=== PATIENT | male | born 1940 | race Caucasian/White ===

== ENCOUNTER 2018-08-15 08:51 | Day surgery (SDC) | payer OTHER, MEDICARE ==
--- OUTSIDE RECORDS SUMMARY | 2018-08-15 08:54 | XMS REPORT | Clinical Summary ---
:1940 Author Organization [facility] Address [address] [place] [address] Care Team Providers Name Role Phone Asked, No Pcp Primary Care Provider Unavailable Allergies No Known Allergies Current Medications Prescription Sig. Disp. Refills Start Date End Date Status atenolol (TENORMIN) 100 08/11/2016 Active MG tablet simvastatin (ZOCOR) 40 08/11/2016 Active MG tablet omeprazole (PriLOSEC) 08/11/2016 Active 40 MG capsule torsemide (DEMADEX) 20 Take 20 mg by Active MG tablet mouth daily. telmisartan (MICARDIS) Take 80 mg by Active 80 MG tablet mouth daily. alendronate (FOSAMAX) Take 70 mg by Active 70 MG tablet mouth every 7 days. Take in the morning with a full glass of water, on an empty stomach, and do not take anything else by mouth or lie down for the next 30 min. aspirin (ECOTRIN) 81 MG Take 81 mg by Active enteric coated tablet mouth daily. multivitamin Take 1 tablet by Active (THERAGRAN) tablet mouth daily. potassium chloride Take 20 mEq by Active (KLOR-CON) 20 mEq mouth 2 (two) packet times a day. cinnamon bark Take 500 mg by Active (CINNAMON) 500 mg mouth daily. capsule cyanocobalamin 100 MCG Take 100 mcg by Active tablet mouth daily. calcium citrate-vitamin Take 1 tablet by Active D3 (CITRACAL+D) 315-200 mouth 2 (two) mg-unit per tablet times a day. cyanocobalamin, vitamin Take by mouth. Active B-12, (LIQUID B 12) 1,000 mcg/15 mL liquid finasteride (PROSCAR) 5 Take 1 tablet by 90 tablet 1 07/16/2017 Active mg tablet mouth daily Active Problems Not on file Social History Tobacco Use Types Packs/Day Years Used Date Never Smoker Smokeless Tobacco: Never Used Alcohol Use Drinks/Week oz/Week Comments Yes Sex Assigned at Date Recorded Not on file Last Filed Vital Signs Not on file Plan of Treatment Health Maintenance Due Date Last Done Comments SHINGRIX VACCINE (#1) 1988 ZOSTER VACCINE 1998 PNEUMOCOCCAL POLYSACCHARIDE VACCINE AGE 65 AND OVER 2003 PNEUMOCOCCAL-13 2003 INFLUENZA VACCINE 06/20/2018 Results Not on fileafter 08/14/2017 Insurance Payer Benefit Plan / Group Subscriber ID Type Phone Address AARP AARP SUPPLEMENT xxxxxxxxxxx Commercial MEDICARE MEDICARE PART A AND B xxxxxxxxxx Medicare [place], [place] Home: [address] [phone] [address]
--- OUTSIDE RECORDS SUMMARY | 2018-08-15 08:54 | XMS REPORT ---
:1940 Author Organization [employer] Care Team Providers Name Role Phone Barrington Early Provider Role Unavailable Allergies No Known Allergies Problems No Known Problems Medications No Known Medications Results No Known Results Summary Purpose eClinicalWorks Submission
--- OUTSIDE RECORDS SUMMARY | 2018-08-15 08:54 | XMS REPORT ---
:1940 Author Organization [employer] Care Team Providers Name Role Phone Barrington Early Provider Role Unavailable Allergies, Adverse Reactions, Alerts Substance Reaction Event Type N.K.D.A. Info Not Available Non Drug Allergy Problems Problem Type Condition Code Onset Dates Condition Status Assessment Trigger ring finger of right hand M65.341 Active Assessment Trigger middle finger of left hand M65.332 Active Assessment Right hand pain M79.641 Active Assessment Left hand pain M79.642 Active Medications Medication Code Code Instructions Start End Status Dosage System Date Date Alendronate [facility] 39367461472 70 MG Oral Active not Sodium defined Atenolol [facility] 74284872830 100 MG Oral Active not defined Finasteride [facility] 89320888747 5 MG Oral Active not defined Trazodone HCl [facility] 81823251633 50 MG Orally Sept 10, Active 1 tablet Once a day 2018 at bedtime as needed Telmisartan [facility] 16579194110 80 MG Oral Active not defined Simvastatin [facility] 82072963683 40 MG Oral Active not defined Omeprazole [facility] 39040579636 40 MG Oral Active not defined Aspirin Adult [facility] 67150867481 81 MG Orally Sept 10, Active 1 tablet Low Dose Once a day 2018 Results No Known Results Summary Purpose eClinicalWorks Submission
--- OUTSIDE RECORDS SUMMARY | 2018-08-15 08:54 | XMS REPORT ---
:1940 Author Organization [employer] Care Team Providers Name Role Phone Early Barrington Provider Role Unavailable Allergies No Known Allergies Problems No Known Problems Medications Medication Code Code Instructions Start End Date Status Dosage System Date Tylenol with [facility] 37333383346 300-30 MG Orally Aug 09, Active 1 tablet Codeine #3 every 6 hrs 2018 as needed Results No Known Results Summary Purpose eClinicalWorks Submission
[2018-08-15 09:37] LABS: Protime INR 0.99
[2018-08-15] MEDS ORDERED: CEFAZOLIN/SWI 1gm 1 GM/10 ML SYR ONE (09:58)
[2018-08-15] MEDS: Ringers Lactate 1,000 ML IV ONE ×2 (10:09→11:14)
[2018-08-15] MEDS ORDERED: BUPIVACAINE 0.25% PF 10 ML VIAL ONE (10:26)
[2018-08-15] MEDS ORDERED: PROPOFOL 200 MG/20 ML VIAL IV ONE (10:31)
[2018-08-15] MEDS ORDERED: FENTANYL CITR 100 MCG/2 ML ONE (10:31)
[2018-08-15] MEDS ORDERED: LIDOCAINE 2% MPF 5 ML VIAL ONE (10:31)
[2018-08-15] MEDS ORDERED: ONDANSETRON HCL 40 MG/20 ML VIAL ONE (10:54)
[2018-08-15] MEDS ORDERED: GLYCOPYRROLATE 0.2 MG/ML SYR ONE ×2 (11:34→11:38)
--- NOTE | 2018-08-15 12:02 | P.BOP ---
Preoperative diagnosis: left hand middle finger trigger digit Postoperative diagnosis: same Primary procedure: left hand middle finger A1 dk release Other procedure(s): none Welder Tech: NONE,NONE Estimated blood loss: <5 cc Specimen: none Findings: see dictation Anesthesia: General Complications: None Implants: none Fluids & blood products: per anesthesia; TT: 19 mins @ 300 mmHg Transferred to: Recovery Room Condition: Good
--- NOTE | 2018-08-16 03:45 | OP ---
Date of Procedure: 08/15/2018 Surgeon: Barrington Early MD Preoperative Diagnosis: Left hand middle finger trigger digit. Postoperative Diagnosis: Left hand middle finger trigger digit. Procedure Performed: Left hand middle finger A1 dk release. Anesthesia: General LMA. Fluids: Per Anesthesia record. Estimated Blood Loss: 2 cc. Complications: None. Implants: None. Specimens: None. Indication For Procedure: Fidel is a 77-year-old male, who presented to my clinic with signs and symptoms consistent with left hand long finger trigger digit. He failed conservative treatment including steroid injection. He had continued pain and triggering of the left hand middle finger. Discussed with the patient at length risks and benefits associated with operative and nonoperative treatment. He expressed understanding and elected to proceed with operative treatment. Description Of Procedure: After informed consent was obtained, the patient was identified in the preoperative holding area. The left hand middle finger was marked. The patient was then taken back to the operating room, transferred to the operating table in supine fashion and placed under general LMA anesthesia. The left upper extremity was then prepped and draped in the usual sterile fashion. A time-out was initiated. The correct patient and procedure were confirmed and identified. The patient did receive preoperative prophylactic antibiotics. The left upper extremity was then exsanguinated and tourniquet was inflated to 250 mmHg. Approximately 1.5 cm longitudinal incision was made over the left hand middle finger A1 dk. Dissection was then taken down to the flexor tendon sheath. It was exposed. It was split and divided. A small portion of the flexor tendon sheath was excised. There was synovial fluid that was expressed after opening of the flexor tendon sheath. Using a Ragnell retractor, the flexor tendon was brought out through the skin incision and the patient had full excursion of the flexor tendon with full range of motion of the middle finger without triggering. The wound was then irrigated thoroughly with normal saline. Skin was approximated using a 5-0 Prolene. Sterile dressings were applied. Tourniquet was let down. The patient was awaken and transferred to PACU in stable condition. Postoperative Plan: He will be nonweightbearing of his left upper extremity. He may be worked on range of motion exercises. He will follow up next week in my clinic for suture removal. DONNY/ANASTASIIA Voice ID: [id number] Report ID: [id number] MTDD
== END 2018-08-15 14:06 | disposition home or self-care (01) ==
LOC: OR 08:51
PROVIDERS: ATTEND Orthopaedic Surgery Sports Medicine
PROC: 0LN80ZZ Release Left Hand Tendon, Open Approach (ICD-10-PCS; principal; 2018-08-15 10:30)
DX: M65.332 Trigger finger, left middle finger (principal); I10 Essential (primary) hypertension; K21.9 Gastro-esophageal reflux disease without esophagitis; G47.33 Obstructive sleep apnea (adult) (pediatric); E78.00 Pure hypercholesterolemia, unspecified; Z85.828 Personal history of other malignant neoplasm of skin; Z79.82 Long term (current) use of aspirin; Z83.3 Family history of diabetes mellitus
CPT/HCPCS: 26055; 36415 ×2; 85610; 85730; J0690; J2405; J3010

== ENCOUNTER 2018-11-16 08:43 | Day surgery (SDC) | payer OTHER, MEDICARE ==
[2018-11-08 11:16] LABS: Protime INR 0.95
[2018-11-08 11:24] LABS: Potassium 3.9 mmol/L (3.5-5.1)
[2018-11-08 11:25] LABS: Absolute Lymphocytes (CBC) 2.6 K/uL (0.7-4.9); Absolute Monocytes 0.4 K/uL (0.1-1.3); Absolute Neutrophil 2.3 K/uL (1.8-8.0); Basophils % 0.9 % (0-1.3); Eosinophils % 3.7 % (0-4.4); Lymphocytes % 45.9 % (15.3-44.8); Monocytes % 8.1 % (3.3-12.3); RBC Red Blood Cell Count 5.19 M/uL (4.33-5.43)
[2018-11-08 12:25] LABS: Blood Morphology Comment NOT SEEN (NOT SEEN); Platelet Estimate ADEQ
--- OUTSIDE RECORDS SUMMARY | 2018-11-16 08:46 | XMS REPORT | Clinical Summary ---
:1940 Author Organization [facility] Address [address] [place] [address] Care Team Providers Name Role Phone Asked, No Pcp Primary Care Provider Unavailable Allergies No Known Allergies Medications Medication Sig Dispensed Refills Start Date End Date Status atenolol (TENORMIN) 100 0 08/11/2016 Active MG tablet simvastatin (ZOCOR) 40 0 08/11/2016 Active MG tablet omeprazole (PriLOSEC) 0 08/11/2016 Active 40 MG capsule torsemide (DEMADEX) 20 Take 20 mg by 0 Active MG tablet mouth daily. telmisartan (MICARDIS) Take 80 mg by 0 Active 80 MG tablet mouth daily. alendronate (FOSAMAX) Take 70 mg by 0 Active 70 MG tablet mouth every 7 days. Take in the morning with a full glass of water, on an empty stomach, and do not take anything else by mouth or lie down for the next 30 min. aspirin (ECOTRIN) 81 MG Take 81 mg by 0 Active enteric coated tablet mouth daily. multivitamin Take 1 tablet by 0 Active (THERAGRAN) tablet mouth daily. potassium chloride Take 20 mEq by 0 Active (KLOR-CON) 20 mEq mouth 2 (two) packet times a day. cinnamon bark Take 500 mg by 0 Active (CINNAMON) 500 mg mouth daily. capsule cyanocobalamin 100 MCG Take 100 mcg by 0 Active tablet mouth daily. calcium citrate-vitamin Take 1 tablet by 0 Active D3 (CITRACAL+D) 315-200 mouth 2 (two) mg-unit per tablet times a day. cyanocobalamin, vitamin Take by mouth. 0 Active B-12, (LIQUID B 12) 1,000 mcg/15 mL liquid finasteride (PROSCAR) 5 Take 1 tablet by 90 tablet 1 07/16/2017 Active mg tablet mouth daily Active Problems Not on file Social History Tobacco Use Types Packs/Day Years Used Date Never Smoker Smokeless Tobacco: Never Used Alcohol Use Drinks/Week oz/Week Comments Yes Sex Assigned at Date Recorded Not on file Job Start Date Occupation Industry Not on file Not on file Not on file Travel History Travel Start Travel End No recent travel history available. Last Filed Vital Signs Not on file Plan of Treatment Health Maintenance Due Date Last Done Comments SHINGLES VACCINES (1 of 2) 1988 PNEUMOCOCCAL POLYSACCHARIDE VACCINE AGE 65 AND OVER 2003 PNEUMOCOCCAL-13 2003 INFLUENZA VACCINE 06/20/2018 Results Not on fileafter 11/15/2017 Insurance Payer Benefit Plan / Group Subscriber ID Type Phone Address AARP AARP SUPPLEMENT xxxxxxxxxxx Commercial MEDICARE MEDICARE PART A AND B xxxxxxxxxx Medicare [place], [place] Advance Directives Patient has advance care planning documents on file. For more information, please contact:[place] [address]
--- OUTSIDE RECORDS SUMMARY | 2018-11-16 08:46 | XMS REPORT ---
[...] End Status Dosage System Date Date Alendronate [facility] 71841922184 70 MG Oral Active not Sodium defined Atenolol [facility] 28908915778 100 MG Oral Active not defined Finasteride [facility] 92096598617 5 MG Oral Active not defined Trazodone HCl [facility] 53801080458 50 MG Orally Sept 10, Active 1 tablet Once a day 2018 at bedtime as needed Telmisartan [facility] 90066099637 80 MG Oral Active not defined Simvastatin [facility] 27136426785 40 MG Oral Active not defined Omeprazole [facility] 03200860468 40 MG Oral Active not defined Aspirin Adult [facility] 72049135975 81 MG Orally Sept 10, Active 1 tablet Low Dose Once a day 2018 Results No Known Results Summary Purpose eClinicalWorks Submission
--- OUTSIDE RECORDS SUMMARY | 2018-11-16 08:46 | XMS REPORT ---
:1940 Author Organization [employer] Care Team Providers Name Role Phone Early Barrington Provider Role Unavailable Allergies, Adverse Reactions, Alerts Substance Reaction Event Type N.K.D.A. Info Not Available Non Drug Allergy Problems Problem Type Condition Code Onset Dates Condition Status Assessment Trigger finger, left middle finger M65.332 Active Medications Medication Code Code Instructions Start End Status Dosage System Date Date Finasteride [facility] 48508181147 5 MG Oral Active not defined Telmisartan [facility] 02623853705 80 MG Oral Active not defined Trazodone HCl [facility] 54724533883 50 MG Orally Jul 30, Active 1 tablet Once a day 2017 at bedtime as needed Aspirin Adult [facility] 04672504249 81 MG Orally Jul 30, Active 1 tablet Low Dose Once a day 2017 Omeprazole [facility] 06227076390 40 MG Oral Active not defined Atenolol [facility] 85287215177 100 MG Oral Active not defined Simvastatin [facility] 93455949112 40 MG Oral Active not defined Alendronate [facility] 59331528657 70 MG Oral Active not Sodium defined Results No Known Results Summary Purpose eClinicalWorks Submission
--- OUTSIDE RECORDS SUMMARY | 2018-11-16 08:46 | XMS REPORT ---
:1940 Author Organization [employer]ClinicalWorks Care Team Providers Name Role Phone Early Barrington Provider Role Unavailable Allergies No Known Allergies Problems No Known Problems Medications Medication Code Code Instructions Start End Date Status Dosage System Date Tylenol with [facility] 23718593291 300-30 MG Orally Aug 09, Active 1 tablet Codeine #3 every 6 hrs 2018 as needed Results No Known Results Summary Purpose eClinicalWorks Submission
[2018-11-16] MEDS ORDERED: Ringers Lactate 1,000 ML IV ONE (08:57)
[2018-11-16] MEDS ORDERED: CEFAZOLIN 1GM (PREMIX IV) 1 GM/50 ML BAG ONE (08:58)
[2018-11-16] MEDS ORDERED: FENTANYL CITR 100 MCG/2 ML ONE (09:54)
[2018-11-16] MEDS ORDERED: PROPOFOL 200 MG/20 ML VIAL IV ONE (09:54)
[2018-11-16] MEDS ORDERED: MIDAZOLAM HCL 2 MG/2 ML INJ ONE (09:54)
[2018-11-16] MEDS ORDERED: LIDOCAINE 1% MPF 5 ML VIAL ONE (09:54)
[2018-11-16] MEDS ORDERED: BUPIVACAINE 0.25% PF 30 ML VIAL ONE (10:08)
[2018-11-16] MEDS ORDERED: KETOROLAC 30 MG/ML INJ ONE (10:51)
--- NOTE | 2018-11-16 10:53 | P.BOP ---
Preoperative diagnosis: right hand ring finger trigger digit Postoperative diagnosis: same Primary procedure: right hand ring finger A1 dk release Business Development Coordinator: NONE,NONE Estimated blood loss: 2 cc Specimen: none Findings: see dictation Anesthesia: General Complications: None Implants: none Fluids & blood products: per anesthesia; TT: 18 mins @ 250 mmHg Transferred to: Recovery Room Condition: Good
[2018-11-16] MEDS ORDERED: ONDANSETRON 4 MG/2 ML VIAL ONE (10:54)
--- NOTE | 2018-11-16 23:59 | OP ---
Date of Procedure: 11/16/2018 Surgeon: Barrington Early MD Preoperative Diagnosis: Right hand ring finger trigger digit. Postoperative Diagnosis: Right hand ring finger trigger digit. Procedure Performed: Right hand ring finger A1 dk release. Anesthesia: General LMA. Fluids: Per Anesthesia record. Estimated Blood Loss: 2 cc. Tourniquet Time: 18 minutes at 250 mmHg. Implants: None. Complications: None. Indication For Procedure: Fidel is a 77-year-old male, presented to my clinic with signs and symptoms and physical exam findings consistent with a right hand ring finger trigger digit. The patient fail ed conservative treatment measures and discussed with the patient at length risks and benefits associ ated with operative treatment. He expressed understanding and elected to proceed with operative wallace tment. Description Of Procedure: After informed consent was obtained, the patient was identified in the pre operative holding area. The right hand ring finger was marked. The patient was then taken back to t operating room, transferred to the operative table in supine fashion, placed under general LMA ane sthesia. Right upper extremity was then prepped and draped in usual sterile fashion. A time-out was initiated. The correct patient and procedure were confirmed and identified. The patient did receiv e his preoperative prophylactic antibiotic. Right upper extremity was then exsanguinated. Tournique t was inflated to 250 mmHg and approximately a 1.5 cm incision was made centered over the ring finger A1 dk. Dissection was then taken down to the A1 dk using tenotomies as well as Ragnell retr actors. Once the flexor tendon sheath was identified, a 15 blade was then used in split and divide t he A1 dk, it was further divided using tenotomies both proximally and distally. A Ragnell was th en used to bring out the flexor tendons out through the incision. There was full excursion of the te ndons without any triggering. There were some synovial fluid that was expressed after the flexor ten don sheath was incised, consistent with chronic synovitis. The wound was then irrigated thoroughly w ith normal saline and the skin was approximated using a 5-0 Prolene. Sterile dressings were placed. The patient awakened and transferred back in stable condition. Postoperative Plan: The patient will follow up in my clinic next week for wound check. He will begi n with range of motion exercises of the right hand. CV/MODL Voice ID: [id number] Report ID: [id number]
== END 2018-11-16 12:50 | disposition home or self-care (01) ==
LOC: OR 08:43
PROVIDERS: ATTEND Orthopaedic Surgery Sports Medicine
PROC: 0LN70ZZ Release Right Hand Tendon, Open Approach (ICD-10-PCS; principal; 2018-11-16 10:00)
DX: M65.341 Trigger finger, right ring finger (principal); I10 Essential (primary) hypertension; E78.00 Pure hypercholesterolemia, unspecified; K21.9 Gastro-esophageal reflux disease without esophagitis; Z79.82 Long term (current) use of aspirin; Z79.899 Other long term (current) drug therapy
CPT/HCPCS: 26055; 36415; 80048; 85025; 85610; 85730; J0690; J2250; J2405; J2704; J3010

== ENCOUNTER 2022-05-02 07:34 | Day surgery (SDC) | payer OTHER, MEDICARE ==
--- NOTE | 2022-04-29 09:36 | RAD REPORT ---
EXAM DESCRIPTION: Chante Angelo (2 Views)04/29/2022 9:29 am CLINICAL HISTORY: Preop for hernia surgery COMPARISON: 2019 FINDINGS: The lungs appear clear of acute infiltrate. The heart is mildly enlarged IMPRESSION: No acute abnormalities displayed
--- NOTE | 2022-04-29 10:58 | EKG ---
Test Date: 2022-04-29 Test Time: 09:18:53 Roll Scale Worker: ANG MEASUREMENT RESULTS: Intervals: Rate: 58 MA: 218 QRSD: 88 QT: 416 QTc: 408 [place]: P: 77 MA: 218 QRS: -23 T: 2 INTERPRETIVE STATEMENTS: Sinus bradycardia with 1st degree AV block Low voltage QRS Inferior infarct, age undetermined Abnormal ECG Compared to ECG 11/13/2014 08:50:41 First degree AV block now present Low QRS voltage now present Myocardial infarct finding still present Electronically Signed On 04-29-22 10:57:56 CDT by Eulalio Canada
[2022-05-02] MEDS ORDERED: CEFAZOLIN SODIUM 1 GM/VIAL ONE (07:56)
[2022-05-02] MEDS ORDERED: Ringers Lactate 1,000 ML IV ONE (07:56)
[2022-05-02] MEDS ORDERED: FENTANYL CITR 100 MCG/2 ML ONE (08:09)
[2022-05-02] MEDS ORDERED: ROCURONIUM 50 MG/5 ML VIAL IV ONE (08:10)
[2022-05-02] MEDS ORDERED: propofoL 200 MG/20 ML VIAL IV ONE (08:10)
[2022-05-02] MEDS ORDERED: LIDOCAINE 1% MPF 5 ML VIAL ONE (08:10)
[2022-05-02] MEDS ORDERED: MIDAZOLAM HCL 2 MG/2 ML INJ ONE (08:10)
[2022-05-02] MEDS ORDERED: NS 0.9% VIAL 10 ML ONE (09:32)
[2022-05-02] MEDS ORDERED: dexAMETHasone 10 MG/ML VIAL ONE (09:43)
[2022-05-02] MEDS ORDERED: KETOROLAC 30 MG/ML INJ ONE (09:43)
[2022-05-02] MEDS ORDERED: ONDANSETRON 4 MG/2 ML VIAL ONE (09:44)
[2022-05-02] MEDS ORDERED: GLYCOPYRROLATE 0.2 MG/ML SYR ONE ×2 (09:47→10:13)
[2022-05-02] MEDS ORDERED: EPHEDRINE SULF 50 MG/ML VIAL ONE (09:52)
[2022-05-02] MEDS ORDERED: NEOSTIGMINE 1 MG/ML -10 ML VIAL ONE (10:13)
[2022-05-02] MEDS ORDERED: Mastisol Adhesive Liq ONE (10:19)
--- NOTE | 2022-05-02 10:24 | P.OP ---
Date of Service: 05/02/22 Preop diagnosis: Umbilical hernia Postop diagnosis: Same Procedure performed: Laparoscopic assisted repair of umbilical hernia Surgeon: Sushil Puga MD Clearing Inspector: Leena SORENSON Estimated blood loss: Minimal Specimen: Hernia sac and contents Findings: As above Anesthesia: General Complications: None Drains: None Fluids and blood products: Nonapplicable Disposition: Recovery room Operative note: Patient brought to the OR and placed in the supine position. General anesthesia begun. Patient prepped and draped in the usual sterile fashion. Marcaine 0.5% infiltrated locally. 15 blade used to make a 1 cm left upper quadrant incision. Subcutaneous tissue divided and fascia identified and divided. #1 Vicryl stay suture placed. Peritoneal cavity entered with sharp and blunt dissection. 12 mm trocar placed into the peritoneal cavity under direct vision. Pneumoperitoneum established. Laparoscopy revealed a small umbilical hernia with preperitoneal fat. A 3 cm transverse incision made over the umbilicus. Subcutaneous tissue divided. Hernia sac and contents identified and excised and sent to pathology as specimen. A 1.5 cm defect remained. Ventralex mesh, medium in size, placed into the peritoneal cavity. And then the fascia reapproximated using #1 Vicryl to secure the mesh to the surface of the f ascia. Then a 5 Ayala trocar placed in the left lower quadrant and laparoscopy was reestablished. Laparoscopy revealed complete coverage of the hernia defect. Tacker used to tack the mesh to the peritoneal service. Complete coverage of the hernia defect was accomplished with good borders. No evidence of bleeding or bowel injury was appreciated. All trochars were removed under direct vision. Stay sutures were tied to each other to reapproximate the fascial defect. Subcutaneous wounds were irrigated and bleeding controlled with cautery. 3-0 chromic was used to approximate subcutaneous tissue and close skin. Sterile dressing applied and patient awakened. Patient taken recovery room in good general condition. CC: Dr. De León's office
[2022-05-02] MEDS ORDERED: HYDROCODONE/APAP 7.5/325 MG TAB PO PRN (10:26)
[2022-05-02 11:18] VITALS: BP 143/71; TEMP 96.9; O2SAT 98
== END 2022-05-02 11:39 | disposition home or self-care (01) ==
LOC: OR 07:34
PROVIDERS: ATTEND Surgery
PROC: 0WUF4JZ Supplement Abdominal Wall with Synthetic Substitute, Percutaneous Endoscopic Approach (ICD-10-PCS; principal; 2022-05-02 09:15)
DX: K42.9 Umbilical hernia without obstruction or gangrene (principal); Z20.822 Contact with and (suspected) exposure to COVID-19
CPT/HCPCS: 93005; 88302; 71046; 49652; U0003; J2704; J2710; J3010; J1100; J7120; J2405; J0690; J2250

== ENCOUNTER 2023-10-23 03:35 | Inpatient (IN) | payer OTHER, MEDICARE ==
--- OUTSIDE RECORDS SUMMARY | 2023-10-23 03:41 | XMS REPORT | Continuity of Care Document ---
:1940 Author Organization [facility] t Address [address] [facility] [address] [place] [address] Care Team Providers Name Role Phone Asked, No Pcp Primary Care Physician Unavailable JOANNA DURAN Attending Clinician Unavailable Ava ROSARIO, Margarita Attending Clinician Unavailable Carlos DELGADO, Delvis Medley Attending Clinician Joanna Duran MD Attending Clinician Erinn Núñez RN Attending Clinician Unavailable Provider , Not In System Attending Clinician Unavailable Penny Penaloza Attending Clinician Unavailable Doctor Unassigned, [employer] Attending Clinician Unavailable Sven Butler DO Attending Clinician Jake Khanna Attending Clinician Payers Payer Name Policy Type Policy Number Effective Date Expiration Date S tess MEDICARE PART A \T\ [id number] 2003 B 00:00:00 [facility] [id number] 2003 MEDICARE SUPPLEMENT 00:00:00 Problems Condition Condition Condition Status Onset Resolution Last Treating Co mments Source Name Details Category Date Date Treatment Clinician Date [id number] Primary Problem 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 itis of - [facility] right knee [facility] No known No known Disease Unive rs active active ity of problems problems [facility] Allergies, Adverse Reactions, Alerts Allergy Allergy Status Severity Reaction(s) Onset Inactive Treating Comm ents Source Name Type Date Date Clinician NO KNOWN Drug Active Univers ALLERGIE Class ity of S [facility] No Known No Known Active Memori a Medicati Medicati l on on Basilio Allergruba Allergruba s s Family History Family Member Diagnosis Comments Start Date Stop Date Source Natural mother Stroke [facility] Natural sister Heart attack [facility] Natural sister Liver disease [facility] Social History Social Habit Start Date Stop Date Quantity Comments Source Sexual orientation 2023-09-04 Heterosexual Meth odist 09:43:10 (finding) Hospital History of Tobacco [facility] - Use [facility] Tobacco use and 2023-10-05 2023-10-05 Smokeless tobacco Me thodist exposure 00:00:00 00:00:00 non-user Hospital Alcohol intake 2023-10-05 2023-10-05 Ex-drinker Caodaism 00:00:00 00:00:00 (finding) Hospital History of Social 2023-10-05 2023-10-[address] function 00:00:00 00:00:00 Hospital Exposure to 2023-04-08 2023-04-18 Not sure University of SARS-CoV-2 (event) 00:00:00 13:24:00 [facility] Sex Ass[birth year] At [birth year] M Caodaism 00:00:00 00:00:00 Hospital Smoking Status Start Date Stop Date Source Social [facility] Medications Ordered Filled Start Stop Current Ordering Indication Dosage Frequency Signature Comments Components Source Medication Medication Date Date Medication? Clinician (SIG) Name Name torsemide 2022-11 Yes 20mg QD Take 1 Method i (DEMADEX) 1-16 tablet (20 st 20 MG 14:10: mg total) Hospita tablet 11 by mouth l daily. telmisartan 2022-11 Yes 80mg QD Take 1 Meth hallie (MICARDIS) 1-16 tablet (80 st 80 MG 14:10: mg total) Hospita tablet 11 by mouth l daily. alendronate 2022-11 Yes 70mg Q1W Take 1 Meth hallie (FOSAMAX) 1-16 tablet (70 st 70 MG 14:10: mg total) Hospita tablet 11 by mouth l every 7 days. Take in the morning with a full glass of water, on an empty stomach, and do not take anything else by mouth or lie down for the next 30 min. aspirin 2022-11 Yes 81mg QD Take 1 Methodi (ECOTRIN) 1-16 tablet (81 st 81 MG 14:10: mg total) Hospita enteric 11 by mouth l coated daily. tablet multivitami 2022-11 Yes 1{tbl} QD Take 1 Me thodi n 1-[address] (THERAGRAN) 14:10: mouth Hospi ta tablet 11 daily. l potassium 2022-11 Yes 20meq Q.5D Take 20 Meth hallie chloride 1-[address] (KLOR-CON) 14:10: mouth 2 Hosp melisa 20 mEq 11 (two) l packet times a day. cinnamon 2022-11 Yes 500mg QD Take 500 Meth hallie bark 1-[address] (CINNAMON) 14:10: mouth Hospit a 500 mg 11 daily. l capsule cyanocobala 2022-11 Yes 100ug QD Take 1 Met hodi min 100 MCG 1-[address] tablet 14:10: (100 mcg Hospita 11 total) by l mouth daily. calcium 2022-11 Yes 1{tbl} Q.5D Take 1 Method i citrate-vit 1-[address] christian D3 14:10: mouth 2 Hospita (CITRACAL+D 11 (two) l ) 315-200 times a mg-unit per day. tablet cyanocobala 2022-11 Yes Take by Met hodi min, 1-[address] vitamin 14:10: Hospita B-12, 11 l (LIQUID B 12) 1,000 mcg/15 mL liquid tamsulosin 2022-11 Yes .4mg QD Take 1 Metho di (FLOMAX) 1-[address] 0.4 mg 14:10: (0.4 mg Hospita capsule 11 total) by l mouth daily with dinner. clopidogreL 2022-11 Yes 75mg QD Take 1 Meth hallie (PLAVIX) 75 1-16 tablet (75 st mg tablet 14:10: mg total) Hos delphine 11 by mouth l daily. ZINC ORAL 2022-11 Yes 50mg Take 50 mg Me thodi 1-[address] 14:10: Hospita 11 l gluc/chondr 2022-11 Yes Take by Met hodi -msm 1-[address] 7/C/galina/desmond 14:10: Hospit a carroll 11 l (GLUCOSAMIN E-CHONDR, BOSWELLIA, ORAL) famotidine 2022-11 Yes not Methodi (PEPCID) 10 1-[address] mg/mL 14:06: Hospita injection 45 l famotidine 2022-11 Yes 40mg QD Take 1 Metho di (PEPCID) 40 1-16 tablet (40 st MG tablet 14:06: mg total) Hos delphine 45 by mouth l daily. irbesartan Yes 150mg 1 tablet Me thodi (AVAPRO) 6-10 ([address] 150 MG 00:00: total). Hospita tablet 00 l Amikacin 2018-11 No 500 mg, Memori a 2-27 Route: IM, l 20:17: ONCE, Dosing Weight 93.182, kg, Start date: 11/15/19 14:17:00 [employer], Stop date: 11/15/19 14:17:00 [employer] Amikacin 2018-11 No 500 mg, Memori a 2- Route: IM, l 20:17: ONCE, Dosing Weight 93.182, kg, Start date: 11/15/19 14:17:00 [employer], Stop date: 11/15/19 14:17:00 [employer] Amikacin 2018-11 No 500 mg, Memori a 2-27 Route: IM, l 20:17: ONCE, Dosing Weight 93.182, kg, Start date: 11/15/19 14:17:00 [employer], Stop date: 11/15/19 14:17:00 [employer] Amikacin 2018-11 No 500 mg, Memori a 2-27 Route: IM, l 20:17: ONCE, Dosing Weight 93.182, kg, Start date: 11/15/19 14:17:00 [employer], Stop date: 11/15/19 14:17:00 [employer] Amikacin 2018-11 No 500 mg, Memori a 2-27 Route: IM, l 20:17: ONCE, Dosing Weight 93.182, kg, Start date: 11/15/19 14:17:00 [employer], Stop date: 11/15/19 14:17:00 [employer] Amikacin 2019- No 500 mg, Memori a 2-27 Route: IM, l 20:17: ONCE, Basilio Dosing Weight 93.182, kg, Start date: 11/15/19 14:17:00 [employer], Stop date: 11/15/19 14:17:00 [employer] Amikacin 2019- No 500 mg, Memori a 2-27 Route: IM, l 20:17: ONCE, Basilio Dosing Weight 93.182, kg, Start date: 11/15/19 14:17:00 [employer], Stop date: 11/15/19 14:17:00 [employer] Amikacin 2019- No 500 mg, Memori a 2-27 Route: IM, l 20:17: ONCE, [place] Dosing Weight 93.182, kg, Start date: 11/15/19 14:17:00 [employer], Stop date: 11/15/19 14:17:00 [employer] Amikacin 2019- No 500 mg, Memori a 2-27 Route: IM, l 20:17: ONCE, Basilio Dosing Weight 93.182, kg, Start date: 11/15/19 14:17:00 [employer], Stop date: 11/15/19 14:17:00 [employer] Ciprofloxac 2018- Yes 500 mg = 1 Memoria in 500 MG 1-15 tab, PO, l Oral Tablet 22:13: Q12H, Jocelyn nn [Cipro] 00 begin three days prior to procedure, X 5 day, # 10 tab, 1 Refill(s), Pharmacy: [facility] #[id number] Ciprofloxac 2018-11 Yes 500 mg = 1 Memoria in 500 MG 1-15 tab, PO, l Oral Tablet 22:13: Q12H, Jocelyn nn [Cipro] 00 begin three days prior to procedure, X 5 day, # 10 tab, 1 Refill(s), [id number] Ciprofloxac 2018-11 Yes 500 mg = 1 Memoria in 500 MG 1-15 tab, PO, l Oral Tablet 22:13: Q12H, Jocelyn nn [Cipro] 00 begin three days prior to procedure, X 5 day, # 10 tab, 1 Refill(s), Pharmacy: [facility] #[id number] [facility] 2018-11 Yes 500 mg = 1 Memoria in 500 MG 1-15 tab, PO, l Oral Tablet 22:13: Q12H, Jocelyn nn [Cipro] 00 begin three days prior to procedure, X 5 day, # 10 tab, 1 Refill(s), Pharmacy: [facility] #[id number] Yes 500 mg = 1 Memoria in 500 MG 1-15 tab, PO, l Oral Tablet 22:13: Q12H, Jocelyn nn [Cipro] 00 begin three days prior to procedure, X 5 day, # 10 tab, 1 Refill(s), Pharmacy: [facility] #[id number] [facility]11 Yes 500 mg = 1 Memoria in 500 MG 1-15 tab, PO, l Oral Tablet 22:13: Q12H, Jocelyn nn [Cipro] 00 begin three days prior to procedure, X 5 day, # 10 tab, 1 Refill(s), Pharmacy: [id number] [facility] 2018-11 Yes 500 mg = 1 Memoria in 500 MG 1-15 tab, PO, l Oral Tablet 22:13: Q12H, Jocelyn nn [Cipro] 00 begin three days prior to procedure, X 5 day, # 10 tab, 1 Refill(s), Pharmacy: [id number] 2018-11 Yes 500 mg = 1 Memoria in 500 MG 1-15 tab, PO, l Oral Tablet 22:13: Q12H, Jocelyn nn [Cipro] 00 begin three days prior to procedure, X 5 day, # 10 tab, 1 Refill(s), Pharmacy: [facility] #[id number] [facility]11 Yes 500 mg = 1 Memoria in 500 MG 1-15 tab, PO, l Oral Tablet 22:13: Q12H, Jocelyn nn [Cipro] 00 begin three days prior to procedure, X 5 day, # 10 tab, 1 Refill(s), Pharmacy: [facility] #[id number] finasteride 2018-11 Yes 5 mg = 1 Me moria 5 mg oral 1-15 tab, PO, l tablet 20:36: Daily, 0 Refill(s) finasteride 2018-11 Yes 5 mg = 1 Me moria 5 mg oral 1-15 tab, PO, l tablet 20:36: Daily, 0 Refill(s) finasteride 2018-11 Yes 5 mg = 1 Me moria 5 mg oral 1-15 tab, PO, l tablet 20:36: Daily, 0 Refill(s) finasteride 2018-11 Yes 5 mg = 1 Me moria 5 mg oral 1-15 tab, PO, l tablet 20:36: Daily, 0 Refill(s) finasteride 2018-11 Yes 5 mg = 1 Me moria 5 mg oral 1-15 tab, PO, l tablet 20:36: Daily, 0 Refill(s) finasteride 2018-11 Yes 5 mg = 1 Me moria 5 mg oral 1-15 tab, PO, l tablet 20:36: Daily, 0 Refill(s) finasteride 2018-11 Yes 5 mg = 1 Me moria 5 mg oral 1-15 tab, PO, l tablet 20:36: Daily, 0 Refill(s) finasteride 2018-11 Yes 5 mg = 1 Me moria 5 mg oral 1-15 tab, PO, l tablet 20:36: Daily, 0 Refill(s) finasteride 2018-11 Yes 5 mg = 1 Me moria 5 mg oral 1-15 tab, PO, l tablet 20:36: Daily, 0 Refill(s) Micardis 2018-11 Yes PO, Daily, Mem oria 0-24 0 l 15:15: Refill(s) Micardis 2018-11 Yes PO, Daily, Mem oria 0-24 0 l 15:15: Refill(s) Micardis 2018-11 Yes PO, Daily, Mem oria 0-24 0 l 15:15: Refill(s) Micardis 2018-11 Yes PO, Daily, Mem oria 0-24 0 l 15:15: Refill(s) Micardis 2018-11 Yes PO, Daily, Mem oria 0-24 0 l 15:15: Refill(s) Micardis 2018-11 Yes PO, Daily, Mem oria 0-24 0 l 15:15: Refill(s) Ransom 00 Micardis 2018-11 Yes PO, Daily, Mem oria 0-24 0 l 15:15: Refill(s) Micardis 2018-11 Yes PO, Daily, Mem oria 0-24 0 l 15:15: Refill(s) Micardis 2018-11 Yes PO, Daily, Mem oria 0-24 0 l 15:15: Refill(s) Sulfamethox 2018-11 Yes 1 tab, PO, Memoria azole 800 0-02 BID, X 7 l MG / 15:11: day, # 14 Ransom Trimethopri 00 tab, 0 m 160 MG Refill(s), Oral Tablet [facility]: [facility] #[id number] Sulfamethox 2018-11 Yes 1 tab, PO, Memoria azole 800 0-02 BID, X 7 l MG / 15:11: day, # 14 Basilio Trimethopri 00 tab, 0 m 160 MG Refill(s), Oral Tablet Pharmacy: [facility] #[id number] Sulfamethox 2018-11 Yes 1 tab, PO, Memoria azole 800 0-02 BID, X 7 l MG / 15:11: day, # 14 Basilio Trimethopri 00 tab, 0 m 160 MG Refill(s), Oral Tablet Pharmacy: [facility] #[id number] Sulfamethox 2018-11 Yes 1 tab, PO, Memoria azole 800 0-02 BID, X 7 l MG / 15:11: day, # 14 Basilio Trimethopri 00 tab, 0 m 160 MG Refill(s), Oral Tablet [facility]: [facility] #[id number] Sulfamethox 2018-11 Yes 1 tab, PO, Memoria azole 800 0-02 BID, X 7 l MG / 15:11: day, # 14 Basilio Trimethopri 00 tab, 0 m 160 MG Refill(s), Oral Tablet [facility]: [facility] #[id number] Sulfamethox 2018-11 Yes 1 tab, PO, Memoria azole 800 0-02 BID, X 7 l MG / 15:11: day, # 14 Basilio Trimethopri 00 tab, 0 m 160 MG Refill(s), Oral Tablet Pharmacy: [[facility] #[id number] Sulfamethox 2018-11 Yes 1 tab, PO, Memoria azole 800 0-02 BID, X 7 l MG / 15:11: day, # 14 Basilio Trimethopri 00 tab, 0 m 160 MG Refill(s), Oral Tablet Pharmacy: [[facility] #[id number] Sulfamethox 2018-11 Yes 1 tab, PO, Memoria azole 800 0-02 BID, X 7 l MG / 15:11: day, # 14 Basilio Trimethopri 00 tab, 0 m 160 MG Refill(s), Oral Tablet Pharmacy: [[facility] #[id number] Sulfamethox 2018-11 Yes 1 tab, PO, Memoria azole 800 0-02 BID, X 7 l MG / 15:11: day, # 14 Ransom Trimethopri 00 tab, 0 m 160 MG Refill(s), Oral Tablet Pharmacy: [[facility] #[id number] tamsulosin 2018-11 Yes TK ONE C Mem oria 0.4 mg oral 0-02 PO D 1/2 l capsule 13:20: HOUR AFTER Herm otis 00 EVENING MEAL tamsulosin 2018-11 Yes TK ONE C Mem oria 0.4 mg oral 0-02 PO D 1/2 l capsule 13:20: HOUR AFTER Herm otis 00 EVENING MEAL tamsulosin 2018-11 Yes TK ONE C Mem oria 0.4 mg oral 0-02 PO D 1/2 l capsule 13:20: HOUR AFTER Herm otis 00 EVENING MEAL tamsulosin 2018-11 Yes TK ONE C Mem oria 0.4 mg oral 0-02 PO D 1/2 l capsule 13:20: HOUR AFTER Herm otis 00 EVENING MEAL tamsulosin 2018-11 Yes TK ONE C Mem oria 0.4 mg oral 0-02 PO D 1/2 l capsule 13:20: HOUR AFTER Herm otis 00 EVENING MEAL tamsulosin 2018-11 Yes TK ONE C Mem oria 0.4 mg oral 0-02 PO D 1/2 l capsule 13:20: HOUR AFTER Herm otis 00 EVENING MEAL tamsulosin 2018-11 Yes TK ONE C Mem oria 0.4 mg oral 0-02 PO D 1/2 l capsule 13:20: HOUR AFTER Herm otis 00 EVENING MEAL tamsulosin 2018-11 Yes TK ONE C Mem oria 0.4 mg oral 0-02 PO D 1/2 l capsule 13:20: HOUR AFTER Herm otis 00 EVENING MEAL tamsulosin 2018-11 Yes TK ONE C Mem oria 0.4 mg oral 0-02 PO D 1/2 l capsule 13:20: HOUR AFTER Herm otis 00 EVENING MEAL omeprazole 2018-11 Yes 40 mg = 1 Me moria 40 mg oral 0-02 cap, PO, l delayed 13:19: Daily, # Santhosh n release 00 30 cap, 0 capsule Refill(s) simvastatin 2018-11 Yes 40 mg = 1 M emoria 40 mg oral 0-02 tab, PO, l tablet 13:19: Bedtime, # Jocelyn nn 00 90 tab, 1 Refill(s) Atenolol 2018-11 Yes 100 mg = 1 Mem oria 100 MG Oral 0-02 tab, PO, l Tablet 13:19: Daily, # Basilio 00 30 tab, 0 Refill(s) omeprazole 2018-11 Yes 40 mg = 1 Me moria 40 mg oral 0-02 cap, PO, l delayed 13:19: Daily, # Santhosh n release 00 30 cap, 0 capsule Refill(s) simvastatin 2018-11 Yes 40 mg = 1 M emoria 40 mg oral 0-02 tab, PO, l tablet 13:19: Bedtime, # Jocelyn nn 00 90 tab, 1 Refill(s) Atenolol 2018-11 Yes 100 mg = 1 Mem oria 100 MG Oral 0-02 tab, PO, l Tablet 13:19: Daily, # Basilio 00 30 tab, 0 Refill(s) omeprazole 2018-11 Yes 40 mg = 1 Me moria 40 mg oral 0-02 cap, PO, l delayed 13:19: Daily, # Santhosh n release 00 30 cap, 0 capsule Refill(s) simvastatin 2018-11 Yes 40 mg = 1 M emoria 40 mg oral 0-02 tab, PO, l tablet 13:19: Bedtime, # Jocelyn nn 00 90 tab, 1 Refill(s) Atenolol 2018-11 Yes 100 mg = 1 Mem oria 100 MG Oral 0-02 tab, PO, l Tablet 13:19: Daily, # Basilio 00 30 tab, 0 Refill(s) omeprazole 2018-11 Yes 40 mg = 1 Me moria 40 mg oral 0-02 cap, PO, l delayed 13:19: Daily, # Santhosh n release 00 30 cap, 0 capsule Refill(s) simvastatin 2018-11 Yes 40 mg = 1 M emoria 40 mg oral 0-02 tab, PO, l tablet 13:19: Bedtime, # Jocelyn nn 00 90 tab, 1 Refill(s) Atenolol 2018-11 Yes 100 mg = 1 Mem oria 100 MG Oral 0-02 tab, PO, l Tablet 13:19: Daily, # Ransom 00 30 tab, 0 Refill(s) omeprazole 2018-11 Yes 40 mg = 1 Me moria 40 mg oral 0-02 cap, PO, l delayed 13:19: Daily, # Santhosh n release 00 30 cap, 0 capsule Refill(s) simvastatin 2018-11 Yes 40 mg = 1 M emoria 40 mg oral 0-02 tab, PO, l tablet 13:19: Bedtime, # Jocelyn nn 00 90 tab, 1 Refill(s) Atenolol 2018-11 Yes 100 mg = 1 Mem oria 100 MG Oral 0-02 tab, PO, l Tablet 13:19: Daily, # Ransom 00 30 tab, 0 Refill(s) omeprazole 2018-11 Yes 40 mg = 1 Me moria 40 mg oral 0-02 cap, PO, l delayed 13:19: Daily, # Santhosh n release 00 30 cap, 0 capsule Refill(s) simvastatin 2018-11 Yes 40 mg = 1 M emoria 40 mg oral 0-02 tab, PO, l tablet 13:19: Bedtime, # Jocelyn nn 00 90 tab, 1 Refill(s) Atenolol 2018-11 Yes 100 mg = 1 Mem oria 100 MG Oral 0-02 tab, PO, l Tablet 13:19: Daily, # Basilio 00 30 tab, 0 Refill(s) omeprazole 2018-11 Yes 40 mg = 1 Me moria 40 mg oral 0-02 cap, PO, l delayed 13:19: Daily, # Santhosh n release 00 30 cap, 0 capsule Refill(s) simvastatin 2018-11 Yes 40 mg = 1 M emoria 40 mg oral 0-02 tab, PO, l tablet 13:19: Bedtime, # Jocelyn nn 00 90 tab, 1 Refill(s) Atenolol 2018-11 Yes 100 mg = 1 Mem oria 100 MG Oral 0-02 tab, PO, l Tablet 13:19: Daily, # Basilio 00 30 tab, 0 Refill(s) omeprazole 2018-11 Yes 40 mg = 1 Me moria 40 mg oral 0-02 cap, PO, l delayed 13:19: Daily, # Santhosh n release 00 30 cap, 0 capsule Refill(s) simvastatin 2018-11 Yes 40 mg = 1 M emoria 40 mg oral 0-02 tab, PO, l tablet 13:19: Bedtime, # Jocelyn nn 00 90 tab, 1 Refill(s) Atenolol 2018-11 Yes 100 mg = 1 Mem oria 100 MG Oral 0-02 tab, PO, l Tablet 13:19: Daily, # Basilio 00 30 tab, 0 Refill(s) omeprazole 2018-11 Yes 40 mg = 1 Me moria 40 mg oral 0-02 cap, PO, l delayed 13:19: Daily, # Santhosh n release 00 30 cap, 0 capsule Refill(s) simvastatin 2018-11 Yes 40 mg = 1 M emoria 40 mg oral 0-02 tab, PO, l tablet 13:19: Bedtime, # Jocelyn nn 00 90 tab, 1 Refill(s) Atenolol 2018-11 Yes 100 mg = 1 Mem oria 100 MG Oral 0-02 tab, PO, l Tablet 13:19: Daily, # Basilio 00 30 tab, 0 Refill(s) Tylenol Tylenol 2017-11 Yes [place] 1 tablet Common with with 2-17 Early as needed Spirit Codeine #3 Codeine #3 00:00: - [facility] Aspirin Aspirin Yes [place] 1 tablet Common Adult Low Adult Low 9-10 Early Spiri t Dose Dose 00:00: - [facility] Aspirin Aspirin No 1{table QD Aspirin Adult Low Adult Low 9-10 t} Adult Low Dose 81 MG Dose 81 MG 00:00: Dose 81 MG 00 torsemide Yes 20mg Take 20 mg Un amina (DEMADEX) 2-22 by mouth. ity o f 20 mg 13:15: [place] tablet Medical Branch telmisartan 2018 Yes 80mg Take 80 mg Univers (MICARDIS) 2-22 by mouth ity o f 80 mg 13:15: daily. [place] tablet 34 Medical Branch alendronate 2018 Yes 70mg Take 70 mg Univers (FOSAMAX) 2-22 by mouth ity of 70 mg 13:15: weekly. [place] tablet Medical Branch omeprazole Yes 20mg Take 20 mg U nivers (PRILOSEC) 2-22 by mouth ity o f 20 mg 13:15: daily. [place] capsule Medical Branch Aspirin Yes Take by Univers (ASPERDRINK 2-22 mouth. ity of ) 81 mg 13:15: [place] TbEF Medical Branch MULTIVITAMI Yes Take by Uni vers N ORAL 2-22 mouth. ity of 13:15: [place] [address] Medical Branch selenium Yes Take by [facility] s 200 mcg Cap 2-22 mouth. ity of 13:15: [place] [address] Medical Branch potassium Yes Take by [facility] rs gluconate 2-22 mouth. ity of 550 mg (90 13:15: [place] mg) Tab Medical Branch Cinnamon Yes Take by [facility] s Bark 2-22 mouth. ity of (CINNAMON) 13:15: [place] 500 mg Cap Medical Branch ASCORBIC Yes Take by [facility] s ACID/VITAMI 2-22 mouth. ity of N E 13:15: [place] (VITAMIN C Medical & E Branch COMBINATION ORAL) CALCIUM Yes Take by [facility] CARBONATE/V 2-22 mouth. ity of ITAMIN D3 13:15: [place] (VITAMIN Medical D-3 ORAL) Branch torsemide Yes 20mg Take 20 mg Un amina (DEMADEX) 2-22 by mouth. ity o f 20 mg 13:15: [place] tablet 34 Medical Branch telmisartan [id number] Yes 80mg Take 80 mg Univers (MICARDIS) 2-22 by mouth ity o f 80 mg 13:15: daily. [place] tablet Medical Branch alendronate Yes 70mg Take 70 mg Univers (FOSAMAX) 2-22 by mouth ity of 70 mg 13:15: weekly. [place] tablet Medical Branch omeprazole Yes 20mg Take 20 mg U nivers (PRILOSEC) 2-22 by mouth ity o f 20 mg 13:15: daily. [place] capsule Medical Branch Aspirin Yes Take by Univers (ASPERDRINK 2-22 mouth. ity of ) 81 mg 13:15: [place] [address] Medical Branch MULTIVITAMI Yes Take by Uni vers N ORAL 2-22 mouth. ity of 13:15: [place] [address] Medical Branch selenium Yes Take by Univer s 200 mcg Cap 2-22 mouth. ity of 13:15: [place] [address] Medical Branch potassium Yes Take by Unive rs gluconate 2-22 mouth. ity of 550 mg (90 13:15: [place] mg) Tab Medical Branch Cinnamon Yes Take by Univer s Bark 2-22 mouth. ity of (CINNAMON) 13:15: [place] 500 mg Cap Medical Branch ASCORBIC [facility]VIT[facility]-22 mouth. ity of N E 13:15: [place] (VITAMIN C Medical & E Branch COMBINATION ORAL) CALCIUM Yes Take by Univers CARBONATE/V 2-22 mouth. ity of ITAMIN D3 13:15: [place] (VITAMIN Medical D-3 ORAL) Branch torsemide Yes 20mg Take 20 mg Un amina (DEMADEX) 2-22 by mouth. ity o f 20 mg 13:15: [place] tablet Medical Branch telmisartan Yes 80mg Take 80 mg Univers (MICARDIS) 2-22 by mouth ity o f 80 mg 13:15: daily. [place] tablet Medical Branch alendronate Yes 70mg Take 70 mg Univers (FOSAMAX) 2-22 by mouth ity of 70 mg 13:15: weekly. [place] tablet Medical Branch omeprazole Yes 20mg Take 20 mg U nivers (PRILOSEC) 2-22 by mouth ity o f 20 mg 13:15: daily. [place] capsule Medical Branch Aspirin Yes Take by Univers (ASPERDRINK 2-22 mouth. ity of ) 81 mg 13:15: [place] [address] Medical Branch MULTIVITAMI Yes Take by Uni vers N ORAL 2-22 mouth. ity of 13:15: [place] 34 Medical Branch selenium Yes Take by Univer s 200 mcg Cap 2-22 mouth. ity of 13:15: [place] [address] Medical Branch potassium Yes Take by Unive rs gluconate 2-22 mouth. ity of 550 mg (90 13:15: [place] mg) Tab Medical Branch Cinnamon Yes Take by Univer s Bark 2-22 mouth. ity of (CINNAMON) 13:15: [place] 500 mg Cap Medical Branch ASCORBIC Yes Take by Univer s ACID/VITAMI 2-22 mouth. ity of N E 13:15: [place] (VITAMIN C Medical & E Branch COMBINATION ORAL) CALCIUM Yes Take by Univers CARBONATE/V 2-22 mouth. ity of ITAMIN D3 13:15: [place] (VITAMIN Medical D-3 ORAL) Branch torsemide Yes 20mg Take 20 mg Un amina (DEMADEX) 2-22 by mouth. ity o f 20 mg 13:15: [place] tablet Medical Branch telmisartan Yes 80mg Take 80 mg Univers (MICARDIS) 2-22 by mouth ity o f 80 mg 13:15: daily. [place] tablet Medical Branch alendronate Yes 70mg Take 70 mg Univers (FOSAMAX) 2-22 by mouth ity of 70 mg 13:15: weekly. [place] tablet Medical Branch omeprazole Yes 20mg Take 20 mg U nivers (PRILOSEC) 2-22 by mouth ity o f 20 mg 13:15: daily. [place] capsule Medical Branch Aspirin Yes Take by Univers (ASPERDRINK 2-22 mouth. ity of ) 81 mg 13:15: [place] TbEF Medical Branch MULTIVITAMI Yes Take by Uni vers N ORAL 2-22 mouth. ity of 13:15: [place] [address] Medical Branch selenium Yes Take by Univer s 200 mcg Cap 2-22 mouth. ity of 13:15: [place] [address] Medical Branch potassium Yes Take by Unive rs gluconate 2-22 mouth. ity of 550 mg (90 13:15: [place] mg) Tab Medical Branch Cinnamon Yes Take by Univer s Bark 2-22 mouth. ity of (CINNAMON) 13:15: [place] 500 mg Cap Medical Branch ASCORBIC Yes Take by Univer s ACID/VITAMI 2-22 mouth. ity of N E 13:15: [place] (VITAMIN C 34 Medical & E Branch COMBINATION ORAL) CALCIUM Yes Take by Univers CARBONATE/V 2-22 mouth. ity of ITAMIN D3 13:15: [place] (VITAMIN Medical D-3 ORAL) Branch torsemide Yes 20mg Take 20 mg Un amina (DEMADEX) 2-22 by mouth. ity o f 20 mg 13:15: [place] tablet Medical Branch telmisartan Yes 80mg Take 80 mg Univers (MICARDIS) 2-22 by mouth ity o f 80 mg 13:15: daily. [place] tablet Medical Branch alendronate Yes 70mg Take 70 mg Univers (FOSAMAX) 2- by mouth ity of 70 mg 13:15: weekly. [place] tablet Medical Branch omeprazole Yes 20mg Take 20 mg U nivers (PRILOSEC) 2- by mouth ity o f 20 mg 13:15: daily. [place] capsule Medical Branch Aspirin Yes Take by Univers (ASPERDRINK 2-22 mouth. ity of ) 81 mg 13:15: [place] [facility] [address] [place] [address] Branch MULTIVITAMI Yes Take by Uni vers N ORAL 2-22 mouth. ity of 13:15: [address] Branch selenium Yes Take by Univer s 200 mcg Cap 2-22 mouth. ity of 13:15: [address] potassium Yes Take by Unive rs gluconate 2-22 mouth. ity of 550 mg (90 13:15: [place] mg) Tab Medical Branch Cinnamon Yes Take by Univer s Bark 2-22 mouth. ity of (CINNAMON) 13:15: [place] 500 mg Cap Medical Branch ASCORBIC Yes Take by Univer s ACID/VITAMI 2-22 mouth. ity of N E 13:15: [place] (VITAMIN C 34 Medical & E Branch COMBINATION ORAL) CALCIUM Yes Take by Univers CARBONATE/V 2-22 mouth. ity of ITAMIN D3 13:15: [place] (VITAMIN 34 Medical D-3 ORAL) Branch torsemide Yes 20mg Take 20 mg [facility] (DEMADEX) 2-22 by mouth. ity o f 20 mg 13:15: [place] tablet Medical Branch telmisartan 2018 Yes 80mg Take 80 mg [facility] (MICARDIS) 2-22 by mouth ity o f 80 mg 13:15: daily. [place] tablet 34 Medical Branch alendronate 2018 Yes 70mg Take 70 mg [facility] (FOSAMAX) 2-22 by mouth ity of 70 mg 13:15: weekly. [place] tablet Medical Branch omeprazole Yes 20mg Take 20 mg U nivers (PRILOSEC) 2-22 by mouth ity o f 20 mg 13:15: daily. [place] capsule Medical Branch Aspirin Yes Take by [facility] (ASPERDRINK 2-22 mouth. ity of ) 81 mg 13:15: [place] [facility] Medical Branch MULTIVITAMI Yes Take by Uni vers N ORAL 2-22 mouth. ity of 13:15: [place] [address] Medical Branch selenium Yes Take by [facility] s 200 mcg Cap 2-22 mouth. ity of 13:15: [place] [address] Medical Branch potassium Yes Take by [facility] rs gluconate 2-22 mouth. ity of 550 mg (90 13:15: [place] mg) Tab Medical Branch Cinnamon Yes Take by [facility] s Bark 2-22 mouth. ity of (CINNAMON) 13:15: [place] 500 mg Cap Medical Branch ASCORBIC Yes Take by [facility] s ACID/VITAMI 2-22 mouth. ity of N E 13:15: [place] (VITAMIN C Medical & E Branch COMBINATION ORAL) CALCIUM Yes Take by [facility] CARBONATE/V 2-22 mouth. ity of ITAMIN D3 13:15: [place] (VITAMIN Medical D-3 ORAL) Branch torsemide Yes 20mg Take 20 mg [facility] (DEMADEX) 2-22 by mouth. ity o f 20 mg 13:15: [place] tablet 34 Medical Branch telmisartan [id number] Yes 80mg Take 80 mg [facility] (MICARDIS) 2-22 by mouth ity o f 80 mg 13:15: daily. [place] tablet Medical Branch alendronate Yes 70mg Take 70 mg [facility] (FOSAMAX) 2-22 by mouth ity of 70 mg 13:15: weekly. [place] tablet Medical Branch omeprazole Yes 20mg Take 20 mg U nivers (PRILOSEC) 2-22 by mouth ity o f 20 mg 13:15: daily. [place] capsule Medical Branch Aspirin Yes Take by [facility] (ASPERDRINK 2-22 mouth. ity of ) 81 mg 13:15: [place] [address] Medical Branch MULTIVITAMI Yes Take by Uni vers N ORAL 2-22 mouth. ity of 13:15: [place] [address] Medical Branch selenium Yes Take by Univer s 200 mcg Cap 2-22 mouth. ity of 13:15: [place] [address] Medical Branch potassium Yes Take by Unive rs gluconate 2-22 mouth. ity of 550 mg (90 13:15: [place] mg) Tab Medical Branch Cinnamon Yes Take by Univer s Bark 2-22 mouth. ity of (CINNAMON) 13:15: [place] 500 mg Cap Medical Branch ASCORBIC Yes [facility]-22 mouth. ity of N E 13:15: [place] (VITAMIN C Medical & E Branch COMBINATION ORAL) CALCIUM Yes Take by Univers CARBONATE/V 2-22 mouth. ity of ITAMIN D3 13:15: [place] (VITAMIN Medical D-3 ORAL) Branch torsemide Yes 20mg Take 20 mg [facility] (DEMADEX) 2-22 by mouth. ity o f 20 mg 13:15: [place] tablet Medical Branch telmisartan Yes 80mg Take 80 mg [facility] (MICARDIS) 2-22 by mouth ity o f 80 mg 13:15: daily. [place] tablet Medical Branch alendronate Yes 70mg Take 70 mg [facility] (FOSAMAX) 2-22 by mouth ity of 70 mg 13:15: weekly. [place] tablet Medical Branch omeprazole Yes 20mg Take 20 mg U nivers (PRILOSEC) 2-22 by mouth ity o f 20 mg 13:15: daily. [place] capsule Medical Branch Aspirin Yes Take by [facility] (ASPERDRINK 2-22 mouth. ity of ) 81 mg 13:15: [place] [address] Medical Branch MULTIVITAMI Yes Take by Uni vers N ORAL 2-22 mouth. ity of 13:15: [place] 34 Medical Branch selenium Yes Take by Univer s 200 mcg Cap 2-22 mouth. ity of 13:15: [place] [address] Medical Branch potassium Yes Take by Unive rs gluconate 2-22 mouth. ity of 550 mg (90 13:15: [place] mg) Tab Medical Branch Cinnamon Yes Take by Univer s Bark 2-22 mouth. ity of (CINNAMON) 13:15: [place] 500 mg Cap Medical Branch ASCORBIC Yes Take by Univer s ACID/VITAMI 2-22 mouth. ity of N E 13:15: [place] (VITAMIN C Medical & E Branch COMBINATION ORAL) CALCIUM Yes Take by [facility] CARBONATE/V 2-22 mouth. ity of ITAMIN D3 13:15: [place] (VITAMIN Medical D-3 ORAL) Branch torsemide Yes 20mg Take 20 mg [facility] (DEMADEX) 2-22 by mouth. ity o f 20 mg 13:15: [place] tablet Medical Branch telmisartan Yes 80mg Take 80 mg [facility] (MICARDIS) 2-22 by mouth ity o f 80 mg 13:15: daily. [place] tablet Medical Branch alendronate Yes 70mg Take 70 mg [facility] (FOSAMAX) 2-22 by mouth ity of 70 mg 13:15: weekly. [place] tablet Medical Branch omeprazole Yes 20mg Take 20 mg U nivers (PRILOSEC) 2-22 by mouth ity o f 20 mg 13:15: daily. [place] capsule Medical Branch Aspirin Yes Take by [facility] (ASPERDRINK 2-22 mouth. ity of ) 81 mg 13:15: [place] [facility] Medical Branch MULTIVITAMI Yes Take by Uni vers N ORAL 2-22 mouth. ity of 13:15: [place] [address] Medical Branch selenium Yes Take by Univer s 200 mcg Cap 2-22 mouth. ity of 13:15: [place] [address] Medical Branch potassium Yes Take by Unive rs gluconate 2-22 mouth. ity of 550 mg (90 13:15: [place] mg) Tab Medical Branch Cinnamon Yes Take by Univer s Bark 2-22 mouth. ity of (CINNAMON) 13:15: [place] 500 mg Cap Medical Branch ASCORBIC Yes Take by Univer s ACID/VITAMI 2-22 mouth. ity of N E 13:15: [place] (VITAMIN C 34 Medical & E Branch COMBINATION ORAL) CALCIUM Yes Take by [facility] CARBONATE/V 2-22 mouth. ity of ITAMIN D3 13:15: [place] (VITAMIN Medical D-3 ORAL) Branch torsemide Yes 20mg Take 20 mg [facility] (DEMADEX) 2-22 by mouth. ity o f 20 mg 13:15: [place] tablet Medical Branch telmisartan Yes 80mg Take 80 mg [facility] (MICARDIS) 2-22 by mouth ity o f 80 mg 13:15: daily. [place] tablet Medical Branch alendronate Yes 70mg Take 70 mg [facility] (FOSAMAX) 2- by mouth ity of 70 mg 13:15: weekly. [place] tablet Medical Branch omeprazole Yes 20mg Take 20 mg U nivers (PRILOSEC) 2- by mouth ity o f 20 mg 13:15: daily. [place] capsule Medical Branch Aspirin Yes Take by [facility] (ASPERDRINK 2-22 mouth. ity of ) 81 mg 13:15: [place] [facility] [address] [place] [address] Branch MULTIVITAMI Yes Take by Uni vers N ORAL 2-22 mouth. ity of 13:15: [address] Branch selenium Yes Take by Univer s 200 mcg Cap 2-22 mouth. ity of 13:15: [address] potassium Yes Take by Unive rs gluconate 2-22 mouth. ity of 550 mg (90 13:15: [place] mg) Tab Medical Branch Cinnamon Yes Take by Univer s Bark 2-22 mouth. ity of (CINNAMON) 13:15: [place] 500 mg Cap Medical Branch ASCORBIC Yes Take by Univer s ACID/VITAMI 2-22 mouth. ity of N E 13:15: [place] (VITAMIN C 34 Medical & E Branch COMBINATION ORAL) CALCIUM Yes Take by [facility] CARBONATE/V 2-22 mouth. ity of ITAMIN D3 13:15: [place] (VITAMIN 34 Medical D-3 ORAL) Branch torsemide Yes 20mg Take 20 mg [facility] (DEMADEX) 2-22 by mouth. ity o f 20 mg 13:15: [place] tablet Medical Branch telmisartan 2018 Yes 80mg Take 80 mg [facility] (MICARDIS) 2-22 by mouth ity o f 80 mg 13:15: daily. [place] tablet 34 Medical Branch alendronate 2018 Yes 70mg Take 70 mg [facility] (FOSAMAX) 2-22 by mouth ity of 70 mg 13:15: weekly. [place] tablet Medical Branch omeprazole Yes 20mg Take 20 mg U nivers (PRILOSEC) 2-22 by mouth ity o f 20 mg 13:15: daily. [place] capsule Medical Branch Aspirin Yes Take by Univers (ASPERDRINK 2-22 mouth. ity of ) 81 mg 13:15: [place] [facility] Medical Branch MULTIVITAMI Yes Take by Uni vers N ORAL 2-22 mouth. ity of 13:15: [place] [address] Medical Branch selenium Yes Take by [facility] s 200 mcg Cap 2-22 mouth. ity of 13:15: [place] [address] Medical Branch potassium Yes Take by [facility] rs gluconate 2-22 mouth. ity of 550 mg (90 13:15: [place] mg) Tab Medical Branch Cinnamon Yes Take by [facility] s Bark 2-22 mouth. ity of (CINNAMON) 13:15: [place] 500 mg Cap Medical Branch ASCORBIC Yes Take by [facility] s ACID/VITAMI 2-22 mouth. ity of N E 13:15: [place] (VITAMIN C Medical & E Branch COMBINATION ORAL) CALCIUM Yes Take by [facility] CARBONATE/V 2-22 mouth. ity of ITAMIN D3 13:15: [place] (VITAMIN Medical D-3 ORAL) Branch torsemide Yes 20mg Take 20 mg [facility] (DEMADEX) 2-22 by mouth. ity o f 20 mg 13:15: [place] tablet 34 Medical Branch telmisartan [id number] Yes 80mg Take 80 mg [facility] (MICARDIS) 2-22 by mouth ity o f 80 mg 13:15: daily. [place] tablet Medical Branch alendronate Yes 70mg Take 70 mg [facility] (FOSAMAX) 2-22 by mouth ity of 70 mg 13:15: weekly. [place] tablet Medical Branch omeprazole Yes 20mg Take 20 mg U nivers (PRILOSEC) 2- by mouth ity o f 20 mg 13:15: daily. [place] capsule Medical Branch Aspirin Yes Take by [facility] (ASPERDRINK 2- mouth. ity of ) 81 mg 13:15: [place] [facility] Medical Branch MULTIVITAMI Yes Take by Uni vers N ORAL 2-22 mouth. ity of 13:15: [address] Branch selenium Yes Take by [facility] s 200 mcg Cap 2- mouth. ity of 13:15: [address] Branch potassium Yes [facility] glu[facility] - mouth. ity of 550 mg (90 13:15: [place] mg) Tab Medical Branch Cinnamon Yes Take by [facility] s Bark 2- mouth. ity of (CINNAMON) 13:15: [place] 500 mg Cap Medical Branch ASCORBIC Yes Take by [facility] s ACID/VITAMI 2- mouth. ity of N E 13:15: [place] (VITAMIN C Medical & E Branch COMBINATION ORAL) CALCIUM Yes Take by [facility] CARBONATE/V - mouth. ity of ITAMIN D3 13:15: [place] (VITAMIN Medical D-3 ORAL) Branch finasteride Yes Take 1 [facility] (PROSCAR) 5 8-[address] mg tablet 00:00: [facility] 00 daily l finasteride Yes Take 1 [facility] (PROSCAR) 5 8-[address] mg tablet 00:00: [facility] 00 daily l torsemide 2015-11 Yes 20mg QD Take 20 mg [facility] (DEMADEX) 11-[address] 20 MG 09:36: daily. [facility] tablet 22 l telmisartan 2015-11 Yes 80mg QD Take 80 mg [facility] (MICARDIS) [address] 80 MG 09:36: daily. [facility] tablet 22 l alendronate 2015-11 Yes 70mg Q1W Take 70 mg [facility] (FOSAMAX) 11-[address] 70 MG 09:36: every 7 [facility] tablet 22 days. Take l in the morning with a full glass of water, on an empty stomach, and do not take anything else by mouth or lie down for the next 30 min. aspirin 2015-11 Yes 81mg QD Take 81 mg [facility] (ECOTRIN) 1-[address] 81 MG 09:36: daily. [facility] enteric 22 l coated tablet multivitami 2015-11 Yes 1{tbl} QD Take 1 [facility] n 1-[address] (THERAGRAN) 09:36: mouth Hospi ta tablet 22 daily. l potassium 2015-11 Yes 20meq Q.5D Take 20 [facility] chloride 1-[address] (KLOR-CON) 09:36: mouth 2 Hosp melisa 20 mEq 22 (two) l packet times a day. cinnamon 2015-11 Yes 500mg QD Take 500 [facility] hallie bark 1-[address] (CINNAMON) 09:36: mouth Hospit a 500 mg 22 daily. l capsule cyanocobala 2015-11 Yes 100ug QD Take 100 M [facility] min 100 MCG 1-[address] tablet 09:36: mouth [facility] 22 daily. l calcium 2015-11 Yes 1{tbl} Q.5D Take 1 [facility] citrate-vit 1-[address] [facility] D3 09:36: mouth 2 Hospita (CITRACAL+D 22 (two) l ) 315-200 times a mg-unit per day. tablet cyanocobala 2015-11 Yes Take by [facility], 1-[address] vitamin 09:36: [facility]osp[facility] B-12, 22 l (LIQUID B 12) 1,000 mcg/15 mL liquid atenolol Yes [facility] (TENORMIN) 08-11 st 100 MG 00:00: [facility] tablet 00 l simvastatin Yes [facility] (ZOCOR) 40 - st MG tablet 00:00: [facility] 00 l omeprazole Yes [facility] (PriLOSEC) 08-11 st 40 MG 00:00: [facility] capsule 00 l atenolol Yes [facility] (TENORMIN) 08-11 st 100 MG 00:00: [facility] tablet 00 l simvastatin Yes [facility] (ZOCOR) 40 9-22 st MG tablet 00:00: [facility] 00 l omeprazole Yes [facility] (PriLOSEC) 08-11 st 40 MG 00:00: [facility]osp[facility] capsule 00 l diclofenac 2016-0 Yes 75mg Take 1 Tab U nivers (VOLTAREN) 2-19 by mouth 2 ity of 75 mg EC 00:00: (two) [place] tablet 00 times Medical daily with Branch meals. diclofenac 2016-0 Yes 75mg Take 1 Tab U nivers (VOLTAREN) 2-19 by mouth 2 ity of 75 mg EC 00:00: (two) [place] tablet 00 times Medical daily with Branch meals. diclofenac 2016-0 Yes 75mg Take 1 Tab U nivers (VOLTAREN) 2-19 by mouth 2 ity of 75 mg EC 00:00: (two) [place] tablet 00 times Medical daily with Branch meals. diclofenac 2016-0 Yes 75mg Take 1 Tab U nivers (VOLTAREN) 2-19 by mouth 2 ity of 75 mg EC 00:00: (two) [place] tablet 00 times Medical daily with Branch meals. diclofenac 2016-0 Yes 75mg Take 1 Tab U nivers (VOLTAREN) 2-19 by mouth 2 ity of 75 mg EC 00:00: (two) [place] tablet 00 times Medical daily with Branch meals. diclofenac 2016-0 Yes 75mg Take 1 Tab U nivers (VOLTAREN) 2-19 by mouth 2 ity of 75 mg EC 00:00: (two) [place] tablet 00 times Medical daily with Branch meals. diclofenac 2016-0 Yes 75mg Take 1 Tab U nivers (VOLTAREN) 2-19 by mouth 2 ity of 75 mg EC 00:00: (two) [place] tablet 00 times Medical daily with Branch meals. diclofenac 2016-0 Yes 75mg Take 1 Tab U nivers (VOLTAREN) 2-19 by mouth 2 ity of 75 mg EC 00:00: (two) [place] tablet 00 times Medical daily with Branch meals. diclofenac 2016-0 Yes 75mg Take 1 Tab U nivers (VOLTAREN) 2-19 by mouth 2 ity of 75 mg EC 00:00: (two) [place] tablet 00 times Medical daily with Branch meals. diclofenac 2016-0 Yes 75mg Take 1 Tab U nivers (VOLTAREN) 2-19 by mouth 2 ity of 75 mg EC 00:00: (two) [place] tablet 00 times Medical daily with Branch meals. diclofenac 2016-0 Yes 75mg Take 1 Tab U nivers (VOLTAREN) 2-19 by mouth 2 ity of 75 mg EC 00:00: (two) [place] tablet 00 times Medical daily with Branch meals. diclofenac 2016-0 Yes 75mg Take 1 Tab U nivers (VOLTAREN) 2-19 by mouth 2 ity of 75 mg EC 00:00: (two) [place] tablet 00 times Medical daily with Branch meals. triamcinolo 2014-11 Yes Apply to Un am[facility] ne 0-12 area(s) 2 ity of acetonide 00:00: (two) [place] (TRIDERM) 00 times Medical 0.1 % cream daily. Branch triamcinolo 2014-11 Yes Apply to [facility] ne 0-12 area(s) 2 ity of acetonide 00:00: (two) [place] (TRIDERM) 00 times Medical 0.1 % cream daily. Branch triamcinolo 2014-11 Yes Apply to [facility] ne 0-12 area(s) 2 ity of acetonide 00:00: (two) [place] (TRIDERM) 00 times Medical 0.1 % cream daily. Branch triamcinolo 2014-11 Yes Apply to [facility] ne 0-12 area(s) 2 ity of acetonide 00:00: (two) [place] (TRIDERM) 00 times Medical 0.1 % cream daily. Branch triamcinolo 2014-11 Yes Apply to [facility] ne 0-12 area(s) 2 ity of acetonide 00:00: (two) [place] (TRIDERM) 00 times Medical 0.1 % cream daily. Branch triamcinolo 2014-11 Yes Apply to [facility] ne 0-12 area(s) 2 ity of acetonide 00:00: (two) [place] (TRIDERM) 00 times Medical 0.1 % cream daily. Branch triamcinolo 2014-11 Yes Apply to Un [facility] ne 0-12 area(s) 2 ity of acetonide 00:00: (two) [place] (TRIDERM) 00 times Medical 0.1 % cream daily. Branch triamcinolo 2014-11 Yes Apply to Un am[facility] ne 0-12 area(s) 2 ity of acetonide 00:00: (two) [place] (TRIDERM) 00 times Medical 0.1 % cream daily. Branch triamcinolo 2014-11 Yes Apply to Un [facility] ne 0-12 area(s) 2 ity of acetonide 00:00: (two) [place] (TRIDERM) 00 times Medical 0.1 % cream daily. Branch triamcinolo 2014- Yes Apply to [facility] ne 0-12 area(s) 2 ity of acetonide 00:00: (two) [place] (TRIDERM) 00 times Medical 0.1 % cream daily. Branch triamcinolo 2014- Yes Apply to Un amina ne 0-12 area(s) 2 ity of acetonide 00:00: (two) [place] (TRIDERM) 00 times Medical 0.1 % cream daily. Branch triamcinolo 2014- Yes Apply to Un am[facility] ne 0-12 area(s) 2 ity of acetonide 00:00: (two) [place] (TRIDERM) 00 times Medical 0.1 % cream daily. Branch fluocinonid Yes Apply to Un [facility] e (LIDEX) 9-11 area(s) 2 ity o f 0.05 % 00:00: (two) [place] ointment 00 times Medical daily. Branch doxycycline 2014- Yes 100mg Take 1 Cap [facility] (MONODOX) 9-11 by mouth 2 ity of 100 mg 00:00: (two) [place] capsule 00 times Medical daily. Branch fluocinonid Yes Apply to Un amina e (LIDEX) 9-11 area(s) 2 ity o f 0.05 % 00:00: (two) [place] ointment 00 times Medical daily. Branch doxycycline 2014- Yes 100mg Take 1 Cap [facility] (MONODOX) 9-11 by mouth 2 ity of 100 mg 00:00: (two) [place] capsule 00 times Medical daily. Branch fluocinonid 2014- Yes Apply to Un amina e (LIDEX) 9-11 area(s) 2 ity o f 0.05 % 00:00: (two) [place] ointment 00 times Medical daily. Branch doxycycline 2015-0 Yes 100mg Take 1 Cap [facility] (MONODOX) 9-11 by mouth 2 ity of 100 mg 00:00: (two) [place] capsule 00 times Medical daily. Branch fluocinonid 2014- Yes Apply to Un am[facility] e (LIDEX) 9-11 area(s) 2 ity o f 0.05 % 00:00: (two) [place] ointment 00 times Medical daily. Branch doxycycline 2015-0 Yes 100mg Take 1 Cap [facility] (MONODOX) 9-11 by mouth 2 ity of 100 mg 00:00: (two) [place] capsule 00 times Medical daily. Branch fluocinonid 2014- Yes Apply to Un amina e (LIDEX) 9-11 area(s) 2 ity o f 0.05 % 00:00: (two) [place] ointment 00 times Medical daily. Branch doxycycline 2014-0 Yes 100mg Take 1 Cap [facility] (MONODOX) 9-11 by mouth 2 ity of 100 mg 00:00: (two) [place] capsule 00 times Medical daily. Branch fluocinonid 2014- Yes Apply to Un amina e (LIDEX) 9-11 area(s) 2 ity o f 0.05 % 00:00: (two) [place] ointment 00 times Medical daily. Branch doxycycline 2014-0 Yes 100mg Take 1 Cap [facility] (MONODOX) 9-11 by mouth 2 ity of 100 mg 00:00: (two) [place] capsule 00 times Medical daily. Branch fluocinonid 2014- Yes Apply to Un am[facility] e (LIDEX) 9-11 area(s) 2 ity o f 0.05 % 00:00: (two) [place] ointment 00 times Medical daily. Branch doxycycline 2014-0 Yes 100mg Take 1 Cap [facility] (MONODOX) 9-11 by mouth 2 ity of 100 mg 00:00: (two) [place] capsule 00 times Medical daily. Branch fluocinonid Yes Apply to Un amina e (LIDEX) 9-11 area(s) 2 ity o f 0.05 % 00:00: (two) [place] ointment 00 times Medical daily. Branch doxycycline 2014-0 Yes 100mg Take 1 Cap [facility] (MONODOX) 9-11 by mouth 2 ity of 100 mg 00:00: (two) [place] capsule 00 times Medical daily. Branch fluocinonid 2014-0 Yes Apply to Un am[facility] e (LIDEX) 9-11 area(s) 2 ity o f 0.05 % 00:00: (two) [place] ointment 00 times Medical daily. Branch doxycycline 2014-0 Yes 100mg Take 1 Cap [facility] (MONODOX) 9-11 by mouth 2 ity of 100 mg 00:00: (two) [place] capsule 00 times Medical daily. Branch fluocinonid 2015-0 Yes Apply to Un am[facility] e (LIDEX) 9-11 area(s) 2 ity o f 0.05 % 00:00: (two) [place] ointment 00 times Medical daily. Branch doxycycline Yes 100mg Take 1 Cap [facility] (MONODOX) 9-11 by mouth 2 ity of 100 mg 00:00: (two) [place] capsule 00 times Medical daily. Branch fluocinonid Yes Apply to [facility] e (LIDEX) 9-11 area(s) 2 ity o f 0.05 % 00:00: (two) [place] ointment 00 times Medical daily. Branch doxycycline Yes 100mg Take 1 Cap [facility] (MONODOX) 9-11 by mouth 2 ity of 100 mg 00:00: (two) [place] capsule 00 times Medical daily. Branch fluocinonid Yes Apply to Un amina e (LIDEX) 9-11 area(s) 2 ity o f 0.05 % 00:00: (two) [place] ointment 00 times Medical daily. Branch doxycycline Yes 100mg Take 1 Cap [facility] (MONODOX) 9-11 by mouth 2 ity of 100 mg 00:00: (two) [place] capsule 00 times Medical daily. Branch valACYclovi Yes Univer s r (VALTREX) 9-10 ity of 500 mg 00:00: [place] tablet 00 Medical Branch valACYclovi Yes Univer s r (VALTREX) 9-10 ity of 500 mg 00:00: [place] tablet 00 Medical Branch valACYclovi Yes Univer s r (VALTREX) 9-10 ity of 500 mg 00:00: [place] tablet 00 Medical Branch valACYclovi Yes Univer s r (VALTREX) 9-10 ity of 500 mg 00:00: [place] tablet 00 Medical Branch valACYclovi Yes Univer s r (VALTREX) 9-10 ity of 500 mg 00:00: [place] tablet 00 Medical Branch valACYclovi Yes Univer s r (VALTREX) 9-10 ity of 500 mg 00:00: [place] tablet 00 Medical Branch valACYclovi Yes Univer s r (VALTREX) 9-10 ity of 500 mg 00:00: [place] tablet 00 Medical Branch valACYclovi Yes Univer s r (VALTREX) 9-10 ity of 500 mg 00:00: [place] tablet 00 Medical Branch valACYclovi Yes Univer s r (VALTREX) 9-10 ity of 500 mg 00:00: [place] tablet 00 Medical Branch valACYclovi Yes Univer s r (VALTREX) 9-10 ity of 500 mg 00:00: [place] tablet 00 Medical Branch valACYclovi Yes Univer s r (VALTREX) 9-10 ity of 500 mg 00:00: [place] tablet Medical Branch valACYclovi Yes Univer s r (VALTREX) 9-10 ity of 500 mg 00:00: [place] tablet 00 Medical Branch acyclovir Yes Univers (ZOVIRAX) 9-06 ity of 200 mg 00:00: [place] capsule Medical Branch acyclovir Yes [facility] (ZOVIRAX) -06 ity of 200 mg 00:00: [place] capsule Medical Branch acyclovir Yes [facility] (ZOVIRAX) 9-06 ity of 200 mg 00:00: [place] capsule Medical Branch acyclovir Yes [facility] (ZOVIRAX) -06 ity of 200 mg 00:00: [place] capsule Medical Branch acyclovir Yes Univers (ZOVIRAX) 9-06 ity of 200 mg 00:00: [place] capsule Medical Branch acyclovir Yes Univers (ZOVIRAX) - ity of 200 mg 00:00: [place] capsule Medical Branch acyclovir 0 Yes Univers (ZOVIRAX) 9-06 ity of 200 mg 00:00: [place] capsule Medical Branch acyclovir Yes Univers (ZOVIRAX) 9-06 ity of 200 mg 00:00: [place] capsule Medical Branch acyclovir Yes Univers (ZOVIRAX) 9-06 ity of 200 mg 00:00: [place] capsule Medical Branch acyclovir Yes Univers (ZOVIRAX) 9-06 ity of 200 mg 00:00: [place] capsule Medical Branch acyclovir Yes Univers (ZOVIRAX) 9-06 ity of 200 mg 00:00: [place] capsule Medical Branch acyclovir Yes Univers (ZOVIRAX) 9-06 ity of 200 mg 00:00: [place] capsule Medical Branch econazole Yes Univers nitrate 1 % 07-23 ity of cream 00:00: Medical Branch econazole Yes Univers nitrate 1 % 07-23 ity of cream 00:00: Medical Branch econazole Yes Univers nitrate 1 % 07-23 ity of cream 00:00: Medical Branch econazole Yes [facility] nitrate 1 % 07-23 ity of cream 00:00: Medical Branch econazole Yes [facility] nitrate 1 % 07-23 ity of cream 00:00: Medical Branch econazole Yes Univers nitrate 1 % 07-23 ity of cream 00:00: Medical Branch econazole Yes Univers nitrate 1 % 07-23 ity of cream 00:00: Medical Branch econazole Yes Univers nitrate 1 % 07-23 ity of cream 00:00: Medical Branch econazole Yes Univers nitrate 1 % 07-23 ity of cream 00:00: Medical Branch econazole Yes Univers nitrate 1 % 07-23 ity of cream 00:00: Medical Branch econazole Yes Univers nitrate 1 % 07-23 ity of cream 00:00: Medical Branch econazole Yes [facility] nitrate 1 % 07-23 ity of cream 00:00: Medical Branch PREVNAR , Yes Univer s PF, 0.5 mL 07-22 ity of injection 00:00: Medical Branch PREVNAR , Yes Univer s PF, 0.5 mL 07-22 ity of injection 00:00: Medical Branch PREVNAR , Yes Univer s PF, 0.5 mL - ity of injection 00:00: Medical Branch PREVNAR , Yes Univer s PF, 0.5 mL - ity of injection 00:00: Medical Branch PREVNAR , Yes Univer s PF, 0.5 mL - ity of injection 00:00: Medical Branch PREVNAR , Yes Univer s PF, 0.5 mL 9-02 ity of injection 00:00: [place] [facility] PREVNAR Yes Univer s PF, 0.5 mL 9-02 ity of injection 00:00: [place] [facility] PREVNAR Yes Univer s PF, 0.5 mL 9-02 ity of injection 00:00: [place] [facility] PREVNAR Yes Univer s PF, 0.5 mL 9-02 ity of injection 00:00: Medical Branch PREVNAR Yes Univer s PF, 0.5 mL 9-02 ity of injection 00:00: [place] [facility] PREVNAR Yes Univer s PF, 0.5 mL 9-02 ity of injection 00:00: Medical Branch PREVNAR Yes Univer s PF, 0.5 mL 9-02 ity of injection 00:00: [place] [facility] atenolol Yes [facility] (TENORMIN) 8-05 ity of 100 mg 00:00: [place] tablet Medical Branch finasteride Yes Univer s (PROSCAR) 5 8-05 ity of mg tablet 00:00: [place] [facility] simvastatin Yes Univer s (ZOCOR) 40 8-05 ity of mg tablet 00:00: [place] [facility] atenolol Yes [facility] (TENORMIN) 8-05 ity of 100 mg 00:00: [place] tablet 00 Medical Branch finasteride Yes Univer s (PROSCAR) 5 8-05 ity of mg tablet 00:00: [place] [facility] simvastatin Yes Univer s (ZOCOR) 40 8-05 ity of mg tablet 00:00: [place] [facility] atenolol Yes [facility] (TENORMIN) 8-05 ity of 100 mg 00:00: [place] tablet Medical Branch finasteride Yes Univer s (PROSCAR) 5 8-05 ity of mg tablet 00:00: [place] [facility] simvastatin Yes Univer s (ZOCOR) 40 8-05 ity of mg tablet 00:00: [place] 00 [facility] atenolol Yes Univers (TENORMIN) 8-05 ity of 100 mg 00:00: [place] tablet 00 Medical [facility] finasteride Yes Univer s (PROSCAR) 5 8-05 ity of mg tablet 00:00: [place] 00 [facility] simvastatin Yes Univer s (ZOCOR) 40 8-05 ity of mg tablet 00:00: [place] 00 [facility] atenolol Yes Univers (TENORMIN) 8-05 ity of 100 mg 00:00: [place] tablet 00 Medical [place] finasteride Yes Univer s (PROSCAR) 5 8-05 ity of mg tablet 00:00: [place] [facility] simvastatin Yes Univer s (ZOCOR) 40 8-05 ity of mg tablet 00:00: [place] [facility] atenolol Yes Univers (TENORMIN) 8-05 ity of 100 mg 00:00: [place] tablet [facility] finasteride Yes Univer s (PROSCAR) 5 8-05 ity of mg tablet 00:00: [facility] simvastatin Yes Univer s (ZOCOR) 40 8-05 ity of mg tablet 00:00: [place] [facility] atenolol Yes Univers (TENORMIN) 8-05 ity of 100 mg 00:00: [place] tablet 00 [facility] finasteride Yes Univer s (PROSCAR) 5 8-05 ity of mg tablet 00:00: [place] [facility] simvastatin Yes Univer s (ZOCOR) 40 8-05 ity of mg tablet 00:00: [facility] atenolol Yes Univers (TENORMIN) 8-05 ity of 100 mg 00:00: [place] tablet 00 Medical Branch finasteride Yes Univer s (PROSCAR) 5 8-05 ity of mg tablet 00:00: [place] 00 [facility] simvastatin Yes Univer s (ZOCOR) 40 8-05 ity of mg tablet 00:00: [facility] atenolol Yes Univers (TENORMIN) 8-05 ity of 100 mg 00:00: [place] tablet 00 [facility] finasteride Yes Univer s (PROSCAR) 5 8-05 ity of mg tablet 00:00: [place] 00 [facility] simvastatin Yes Univer s (ZOCOR) 40 8-05 ity of mg tablet 00:00: [place] 00 [facility] atenolol Yes Univers (TENORMIN) 8-05 ity of 100 mg 00:00: [place] tablet 00 [facility] finasteride Yes Univer s (PROSCAR) 5 8-05 ity of mg tablet 00:00: [place] 00 [facility] simvastatin Yes Univer s (ZOCOR) 40 8-05 ity of mg tablet 00:00: [place] 00 [facility] atenolol Yes Univers (TENORMIN) 8-05 ity of 100 mg 00:00: [place] tablet 00 [facility] finasteride Yes Univer s (PROSCAR) 5 8-05 ity of mg tablet 00:00: [place] 00 [facility] simvastatin Yes Univer s (ZOCOR) 40 8-05 ity of mg tablet 00:00: [place] 00 [facility] atenolol Yes Univers (TENORMIN) 8-05 ity of 100 mg 00:00: [place] tablet 00 [facility] finasteride Yes Univer s (PROSCAR) 5 8-05 ity of mg tablet 00:00: [place] 00 [facility] simvastatin Yes Univer s (ZOCOR) 40 8-05 ity of mg tablet 00:00: [place] 00 [facility] Baby Baby No Baby Aspirin Aspirin Aspirin Glucosa-Cho Glucosa-Cho No Glucosa-Ch ndr-Na ndr-Na ondr-Na Chondr-MSM Chondr-MSM Chondr-MSM Finasteride Finasteride Yes [place] not Common Early defined [facility] Telmisartan Telmisartan Yes [place] not Common Early defined [facility] Omeprazole Omeprazole Yes [place] not Common Early defined [facility] Atenolol Atenolol Yes [place] not Comm on Early defined [facility] Simvastatin Simvastatin Yes [place] not Common Early defined [facility] Alendronate Alendronate Yes [place] not Common Sodium Sodium Early defined [facility] Irbesartan Irbesartan Yes [place] not Common Early defined [facility] Famotidine Famotidine Yes [place] not Common Early defined [facility] Zocor Zocor Yes [place] not Common Early defined [facility] Torsemide Torsemide Yes [place] not Co mmon Early defined [facility] Famotidine Famotidine No Famotidine Finasteride Finasteride No Finasterid 5 MG 5 MG e 5 MG Potassimin Potassimin No Potassimin Torsemide Torsemide No Torsemide Multiple Multiple No Multiple Vitamin Vitamin Vitamin Alendronate Alendronate No Alendronat Sodium 70 Sodium 70 e Sodium MG MG 70 MG Zocor Zocor No Zocor Vitamin C Vitamin C No Vitamin C Atenolol Atenolol No Atenolol 100 MG 100 MG 100 MG Calcium + D Calcium + D No Calcium + D Irbesartan Irbesartan No Irbesartan Cinnamon Cinnamon No Cinnamon Vital Signs Vital Name Observation Time Observation Value Comments Source Body height 2023-10-03 19:44:00 177.8 cm [facility] Body height 2023-04-18 18:32:00 177.8 cm [facility] Body height 2022-09-27 19:54:00 177.8 cm [facility] Body height 2022-03-22 19:13:00 177.8 cm [facility] height 2021-12-16 13:30:00 70 [in_i] [facility] weight 2021-12-16 13:30:00 200 [lb_av] [facility] temperature 2021-12-16 13:30:00 97.2 [degF] [facility] bmi 2021-12-16 13:30:00 28.69 kg/m2 [facility] blood pressure 2021-12-16 13:30:00 132 mm[Hg] [facility] - systolic [facility] blood pressure 2021-12-16 13:30:00 84 mm[Hg] [facility] - diastolic [facility] Systolic blood 2023-10-05 19:54:00 158 mm[Hg] [facility] pressure Diastolic blood 2023-10-05 19:54:00 87 mm[Hg] [facility] pressure Heart rate 2023-10-05 19:54:00 77 /min [facility] Body temperature 2023-10-05 19:54:00 36.39 Guerline [facility] Respiratory rate 2023-10-05 19:54:00 18 /min [facility] Body height 2023-10-05 19:54:00 177.8 cm [facility] Body weight 2023-10-05 19:54:00 88.451 kg [facility] BMI 2023-10-05 19:54:00 27.98 kg/m2 [facility] Oxygen saturation in 2023-10-05 19:54:00 95 /min [facility] Arterial blood by Pulse oximetry Height 2019-11-15 19:13:00 177.8 cm [facility] Weight 2019-11-15 19:13:00 [facility] BMI Calculated 2019-11-15 19:13:00 [facility] Height 2019-09-12 13:12:00 177.8 cm [facility] Weight 2019-09-12 13:12:00 [facility] BMI Calculated 2019-09-12 13:12:00 [facility] Height 2019-08-21 13:14:00 177.8 cm [facility] Procedures Procedure Date / Time Performing Clinician Source Performed PARTIAL THROMBOPLASTIN 2023-10-05 22:05:[address] [facility] TIME (PTT) PROTHROMBIN TIME WITH INR 2023-10-05 22:05:00 Delvis Gonzalez [facility] COMPREHENSIVE METABOLIC 2023-10-05 22:05:00 Delvis Gonzalez [facility] PANEL CBC WITH PLATELET AND 2023-10-05 22:05:00 Delvis Gonzalez [facility] DIFFERENTIAL ESTIMATED GFR 2023-10-05 22:05:00 Delvis Gonzalez [facility] XR CHEST 2 VW 2023-10-05 19:39:00 Delvis Gonzalez [facility] XR CHEST 1 VW 2023-09-25 18:30:00 Delvis Gonzalez [facility] US THORACENTESIS WITH 2023-09-25 18:10:01 Delvis Gonzalez [facility] IMAGING GLUCOSE LEVEL, [facility] FLUID 2023-09-25 17:45:00 Delvis Gonzalez [facility] LDH, [facility] FLUID 2023-09-25 17:45:00 Delvis Gonzalez [facility] PH, [facility] FLUID 2023-09-25 17:45:00 Delvis Gonzalez [facility] PROTEIN, [facility] FLUID 2023-09-25 17:45:00 Delvis Gonzalez [facility] CELL COUNT AND 2023-09-25 17:45:00 Delvis Gonzalez [facility] DIFFERENTIAL, BODY FLUID CYTOLOGY 2023-09-25 17:45:00 Delvis Gonzalez [facility] (NON-GYNECOLOGICAL) REQUEST AEROBIC CULTURE 2023-09-25 17:45:00 Delvis Gonzalez [facility] ANAEROBIC CULTURE 2023-09-25 17:45:00 Delvis Gonzalez [facility] AFB CULTURE 2023-09-25 17:45:00 Delvis Gonzalez [facility] GRAM STAIN 2023-09-25 17:45:00 Delvis Gonzalez [facility] AFB STAIN 2023-09-25 17:45:00 Delvis Gonzalez [facility] PARTIAL THROMBOPLASTIN 2023-09-21 15:47:[address] [facility] TIME (PTT) PROTHROMBIN TIME WITH INR 2023-09-21 15:47:00 Delvis Gonzalez [facility] COMPREHENSIVE METABOLIC 2023-09-21 15:47:00 Delvis Gonzalez [facility] PANEL CBC WITH PLATELET AND 2023-09-21 15:47:00 Delvis Gonzalez [facility] DIFFERENTIAL ESTIMATED GFR 2023-09-21 15:47:00 Delvis Gonzalez [facility] MCH XR CHEST 1 VW (FUJI 2023-09-21 00:00:00 Provider, Not In [facility] RIS) System US DUPLEX VENOUS LOWER 2023-09-21 00:00:00 Provider, Not In [facility] EXTREMITY System CT CHEST EXTERNAL STUDY 2023-08-29 14:22:45 Delvis Gonzalez [facility] XR CHEST EXTERNAL STUDY 2023-08-29 14:02:57 Delvis Gonzalez [facility] US VASCULAR EXTERNAL 2023-08-29 13:53:54 Delvis Gonzalez [facility] STUDY CT CHEST W CONTRAST 2023-08-29 00:00:00 Provider, Not In [facility] System ASSIGNMENT OF BENEFITS 2023-04-18 18:24:32 Doctor Unassigned, [facility] [employer] [facility] Biopsy, prostate; needle 2019-11-15 20:29:00 Mem orial Ransom or punch, single or multiple, any approach Plan of Care Planned Activity Planned Date Details Comments Source Future Scheduled Test 2023-10-21 SHINGLES VACCINES (1 [facility] 16:48:45 of 2) [code = SHINGLES VACCINES (1 of 2)] Future Scheduled Test 2023-10-21 COVID-19 VACCINE (4 - [facility] 16:48:45 season) [code = COVID-19 VACCINE (4 - season)] Future Scheduled Test 2023-07-21 COVID-19 VACCINE (#1) [facility] 04:54:58 [code = COVID-19 VACCINE (#1)] Future Scheduled Test 2023-07-21 SHINGLES VACCINES (1 [facility] 04:54:58 of 2) [code = SHINGLES VACCINES (1 of 2)] Future Scheduled Test 2023-07-21 65+ PNEUMOCOCCAL [facility] 04:54:58 VACCINE (1 - PCV) [code = 65+ PNEUMOCOCCAL VACCINE (1 - PCV)] Future Scheduled Test 2023-07-21 INFLUENZA VACCINE [facility] 04:54:58 (#1) [code = INFLUENZA VACCINE (#1)] Future Appointment 2023-11-01 Delvis Gonzalez MD, 1480 [facility] 12:00:00 [facility]; [address], [place] [address] Encounters Start End Encounter Admission Attending Care Care Encounter Source Date/Time Date/Time Type Type Clinicians Facility Department ID 2021-12-15 Outpatient [facility] [id number] Common 14:30:47 [facility] 2021-12-15 Outpatient [facility] [id number] Common 11:27:41 [id number] [facility] 2023-10-11 2023-10-11 Telephone Mislang, 1.2.840.1 [id number] Methodi 00:00:00 00:00:[address] 3.430.2.7 Hospit a .3.687573 l .8 2023-10-06 2023-10-06 Telephone Mislang, 1.2.840.1 [id number] Methodi 00:00:00 00:00:[address] 3.430.2.7 Hospit a .3.334525 l .8 2023-10-05 2023-10-05 [facility], 1.2.840.1 [id number] Methodi 13:04:31 23:59:00 Encounter [facility] [address]29.1.[address] 3.430.2.7 Hospit a .3.809705 l .8 2023-10-05 2023-10-05 [facility], 1.2.840.1 [id number] Methodi 15:55:00 16:00:00 [facility] [address] 3.430.2.7 Hospit a .3.161628 l .8 2023-10-05 2023-10-05 [facility], 1.2.840.1 [id number] Methodi 14:45:00 15:00:00 Visit [facility]. 40811.1.[address] 3.430.2.7 Hospit a .3.643707 l .8 2023-10-05 2023-10-05 Outpatient [facility] [id number] [place] 00:00:00 00:00:[address] EDWARD [address] 2023-10-05 2023-10-05 Outpatient [facility] [id number] [place] 00:00:00 00:00:00 EDWARD [address] 2023-10-05 2023-10-05 Outpatient [facility] [id number] [place] 00:00:00 00:00:00 EDWARD [address] 2023-10-03 2023-10-03 Outpatient Josue DURAN, [facility] [id number] [facility] 14:15:00 14:17:04 JOANNA nahomy [facility] 2023-10-03 2023-10-03 Office PATO Duran 1.2.840.114 [id number] [facility] 14:15:00 14:17:04 Visit Joanna Escudero [id number] [facility] 4.2.7.2.686 [place] [id number] [address] 2023-09-25 2023-09-25 [facility], 1.2.840.1 [id number] Methodi 11:55:00 23:59:00 Encounter Edcorinne KhanHRalph 30434.1.[address] 3.430.2.7 Hospit a .3.656721 l .8 2023-09-25 2023-09-25 [facility], 1.2.840.1 [id number] Methodi 08:28:23 11:54:00 Encounter Edcorinne KhanHRalph 25312.1.[address] 3.430.2.7 Hospit a .3.389005 l .8 2023-09-25 2023-09-25 [facility] [id number] [place] 00:00:00 00:00:00 EDWARD [address] 2023-09-25 2023-09-25 Outpatient [facility] [id number] [place] 00:00:00 00:00:00 EDWARD [address] 2023-09-21 2023-09-21 [facility], 1.2.840.1 [id number] Methodi 08:48:31 23:59:00 Encounter Edcorinne KhanHRalph 79630.1.[address] 3.430.2.7 Hospit a .3.141866 l .8 2023-09-21 2023-09-21 [facility], 1.2.840.1 [id number] Methodi 10:30:00 10:35:00 Edcorinne Rudd.H. [address]114.[address] 3.430.2.7 Hospit a .3.294330 l .8 2023-09-21 2023-09-21 [facility], 1.2.840.1 [id number] Methodi 10:00:00 10:20:29 Visit Edcorinne Rudd.H. 35333.1.[address] 3.430.2.7 Hospit a .3.678234 l .8 2023-09-21 2023-09-21 [facility], 1.2.840.1 [id number] Methodi 08:36:03 08:47:00 Encounter Edcorinne Rudd.H. 56911.1.[address] 3.430.2.7 Hospit a .3.837632 l .8 2023-09-21 2023-09-21 [facility], 1.2.840.1 [id number] Methodi 08:36:02 08:47:00 Encounter Edcorinne Rudd.H. 60616.1.[address] 3.430.2.7 Hospit a .3.734428 l .8 2023-09-21 2023-09-21 [facility], [facility] [id number] [place] 00:00:00 00:00:00 EDWARD 904 Method i 2023-09-21 2023-09-21 [facility] [id number] [place] 00:00:00 00:00:00 EDWARD 365 Method i 2023-09-21 2023-09-21 [facility] [id number] [place] 00:00:00 00:00:00 EDWARD 372 Method i 2023-09-21 2023-09-21 [facility] [id number] [place] 00:00:00 00:00:00 EDWARD 038 Method i 2023-09-21 2023-09-21 [facility] [id number] [place] 00:00:00 00:00:00 EDWARD 943 Method i 2023-09-21 2023-09-21 Telephone [place], 1.2.840.1 [id number] Methodi 00:00:00 00:00:[address] 3.430.2.7 Hospit a .3.568340 l .8 2023-09-21 2023-09-21 Orders Provider, 1.2.840.1 [id number] [id number] Methodi 00:00:00 00:00:00 Only [place] 87665.1.[address] System 3.430.2.7 Hospit a .3.028241 l .8 2023-09-19 2023-09-19 Telephone [place], 1.2.840.1 [id number] Methodi 00:00:00 00:00:[address] 3.430.2.7 Hospit a .3.788988 l .8 2023-09-04 2023-09-04 Telephone [place], 1.2.840.1 [id number] [id number] Methodi 00:00:00 00:00:[address] 3.430.2.7 Hospit a .3.346875 l .8 2023-09-04 2023-09-04 Orders Provider, 1.2.840.1 [id number] [id number] Methodi 00:00:00 00:00:00 Only [place] In 98442.1.[address] System 3.430.2.7 Hospit a .3.519196 l .8 2023-08-30 2023-08-30 Telephone [place], 1.2.840.1 [id number] Methodi 00:00:00 00:00:[address] 3.430.2.7 Hospit a .3.424421 l .8 2023-04-18 2023-04-18 Outpatient Josue DURAN [facility] [id number] [facility] 13:30:00 13:48:08 JOANNA zafar [facility] 2023-04-18 2023-04-18 Office PATO Duran 1.2.840.114 [id number] Univers 13:30:00 13:48:08 Visit Joanna Escudero [facility] 350.1.13.10 ity of CL[place] [id number] [address] 2023-04-18 2023-04-18 Orders Doctor WALTER 1.2.840.114 [id number] Univers 00:00:00 00:00:00 Only Unassigned, KORINA 350.1.13.10 ity of [employer] [facility] 4.2.7.2.686 Noah as [id number] [address] 2022-09-27 2022-09-27 [facility] [id number] Univers 14:00:00 14:27:45 JOANNA zafar [facility] 2022-09-27 2022-09-27 Office PATO Duran 1.2.840.114 [id number] Univers 14:00:00 14:27:45 Visit Joanna Escudero [facility] [id number] ity of CL[place] [id number] [address] 2022-03-22 2022-03-22 Office PATO Duran 1.2.840.114 [id number] Univers 14:30:00 14:49:31 Visit Joanna Escudero [facility] [id number] ity of [place] [id number] [address] 2022-03-22 2022-03-22 Outpatient [facility] [id number] Univers 14:30:00 14:49:31 JOANNA zafar [facility] 2022-03-22 2022-03-22 [facility] [id number] Univers 14:30:00 14:49:31 JOANNA zafar [facility] 2022-03-22 2022-03-22 [facility] [id number] Univers 14:30:00 14:30:00 JOANNA zafar [facility] 2022-03-22 2022-03-22 Orders Doctor WATSON 1.2.840.114 [id number] Univers 00:00:00 00:00:00 Only Unassigned, KORINA 350.1.13.10 ity of [facility] 4.2.7.2.686 Noah as [id number] [facility] 009 [place] 2021-12-16 2021-12-16 OFFICE [facility] [id number] Co mmon 00:00:00 00:00:00 VISIT Sean JAMES PT - CHI LEVEL 4 [facility] 2021-09-28 2021-09-28 Office PATO Duran 1.2.840.114 [id number] Univers 14:36:34 15:06:34 Visit [facility] [id number] ity of CL[place] [id number] [address] 2021-09-28 2021-09-28 Outpatient Josue DURAN [facility] [id number] Univers 15:00:00 15:00:00 [facility] 2021-09-28 2021-09-28 Outpatient Josue DURAN [facility] [id number] Univers 15:00:00 15:00:00 JOANNA [facility] 2021-09-21 2021-09-21 Outpatient Josue DURAN [facility] [id number] Univers 14:45:00 14:47:28 JOANNA [facility] 2021-09-21 2021-09-21 [facility] [id number] Univers 14:45:00 14:47:28 JOANNA [facility] 2021-09-21 2021-09-21 [facility] [id number] Univers 14:45:00 14:47:28 JOANNA [facility] 2021-09-21 2021-09-21 Office PATO Duran 1.2.840.114 [id number] Univers 13:56:28 14:47:28 Visit [facility] [id number] ity of [facility] 4.[place].7.[place] [id number] [address] 2021-09-21 2021-09-21 [facility] [id number] Univers 14:45:00 14:45:00 [facility] 2021-04-21 2021-04-21 Patient Doctor [facility] 1.2.840.114 [id number] Univers 00:00:00 00:00:00 Secure Unassigned, MULTISPEC 350.1.13.10 ity of [employer] IALTY 4.2.7.2.686 [facility] [id number] [address] [facility] 2020-12-13 2020-12-13 Patient Luke [facility] 1.2.840.114 [id number] Univers 00:00:00 00:00:00 Outreach Sven PRIMARY 350.1.13.10 i ty of [facility] 4.2.7.2.686 [facility] [id number] [address] 2020-09-10 2020-09-10 Office Gerardo [facility] 1.2.840.114 [id number] Univers 09:39:34 10:10:19 Visit Joanna GRANDAPEC 350.1.13.10 ity of IALTY 4.2.7.2.686 [facility] [id number] [address] [facility] 2020-09-10 2020-09-10 Office Gerardo [facility] 1.2.840.114 [id number] 09:39:34 10:10:19 Visit Joanna Escudero MULTISPEC 350.1.13.10 IALTY 4.2.7.2.686 [place] [id number] [address] 2020-09-10 2020-09-10 Outpatient [facility] [id number] Univers 09:45:00 09:45:00 JOANNA zafar of [facility] 2020-06-01 2020-06-01 Out[facility] [id number] Common 14:30:00 14:30:00 t Bone Bone [facility] Sp[facility] t [facility] 2020-04-06 2020-04-07 [place] [id number] Memoria 14:40:00 04:59:59 r Urology 06 l [facility] Jocelyn nn Time Share 2020-04-06 2020-04-07 Outpatient nullFlavo [facility] [id number] Memoria 14:40:00 04:59:59 r Urology 06 l Philip Cortesrajwinder tanner Time Share 2020-04-06 2020-04-06 Outpatient JOSEY KhannaMG [facility] [id number] 09:40:00 23:59:59 Jake S 06 2020-04-06 2020-04-06 Outpatient MHIE MHIE [id number] Memoria 09:40:00 09:40:00 06 anju [place] 2020-03-12 2020-03-12 Outpatient R DURAN [facility] [id number] [facility] 10:30:00 10:30:00 JOANNA zafar [facility] 2019-11-29 2019-11-30 Outpatient nullFlavo [facility] [id number] Memoria 17:30:00 05:59:59 r Urology 04 l Philip tanner [facility] 2019-11-29 2019-11-30 Outpatient nullFlavo [facility] [id number] Memoria 17:30:00 05:59:59 r Urology 04 l Philip tanner [facility] 2019-11-29 2019-11-29 Outpatient JOSEY KhannaMG MG [id number] 11:30:00 23:59:59 Jake S 04 2019-11-29 2019-11-29 Outpatient MHIE MHIE [id number] Memoria 11:30:00 11:30:00 04 anju [place] 2019-11-15 2019-11-16 Outpatient nullFlavo [facility] [id number] Memoria 19:00:00 05:59:59 r Urology 05 l Philip tanner [facility] 2019-11-15 2019-11-16 Outpatient nullFlavo [facility] [id number] Memoria 19:00:00 05:59:59 r Urology 05 l Philip Jocelyn tanner [place] [facility] 2019-11-15 2019-11-15 Outpatient JOSEY KhannaMG [facility] [id number] 13:00:00 23:59:59 Jake S 05 2019-11-15 2019-11-15 Ambulatory nullFlavo [facility] [id number] Memoria 14:30:00 14:30:00 Pre-Reg r Urology 03 l Philip tanner [place] [facility] 2019-11-15 2019-11-15 Ambulatory nullFlavo [facility] [id number] Memoria 14:30:00 14:30:00 Pre-Reg r Urology 03 anju Banks [facility] 2019-11-15 2019-11-15 Outpatient NATANAEL SANTOYO [id number] Memoria 13:00:00 13:00:00 05 anju [place] 2019-11-15 2019-11-15 Outpatient NATANAEL SANTOYO [id number] Memoria 08:30:00 08:30:00 03 anju [place] 2019-11-15 2019-11-15 Outpatient Jey [facility] [id number] 08:30:00 08:30:00 Jake S 2019-10-14 2019-10-14 Out[facility] [id number] Common 09:00:00 09:00:00 t Bone Bone [facility] Spiri t [facility] 2019-10-04 2019-10-05 Outpatient nullFlavo [facility] [id number] Memoria 20:40:00 05:59:59 r Urology 02 anju Banks [facility] 2019-10-04 2019-10-05 [place] [id number] Memoria 20:40:00 05:59:59 r Urology 02 anju Banks [facility] 2019-10-04 2019-10-04 Outpatient Jey [facility] [id number] 14:40:00 23:59:59 Jake S 2019-10-04 2019-10-04 Outpatient NATANAEL SANTOYO [id number] Memoria 14:40:00 14:40:00 02 anju [place] 2019-09-12 2019-09-13 Outpatient nullFlavo MG [id number] Memoria 15:00:00 04:59:59 r Urology 01 anju Banks [facility] 2019-09-12 2019-09-13 [place] [id number] Memoria 15:00:00 04:59:59 r Urology 01 anju Banks [facility] 2019-09-12 2019-09-12 Outpatient Jey [facility] [id number] 10:00:00 23:59:59 Jake S 2019-09-12 2019-09-12 Outpatient NATANAEL DOWLINGRUBA [id number] Memoria 10:00:00 10:00:00 01 anju [place] 2019-08-21 2019-08-22 Outpatient nullFlavo MG Multi 55 [id number] Memoria 14:30:00 04:59:59 r Specialty 00 l [facility] 2019-08-21 2019-08-22 Outpatient nullFlavo [facility] Multi 55 [id number] Memoria 14:30:00 04:59:59 r Specialty 00 l [facility] 2019-08-21 2019-08-21 Outpatient Jey, MG [facility] [id number] 09:30:00 23:59:59 Jake S 00 2019-08-21 2019-08-21 Outpatient NATANAEL RUBA [id number] Memoria 09:30:00 09:30:00 00 anju [place] 2018-12-24 2018-12-24 Out[facility] [id number] Common 08:30:00 08:30:00 t [facility] 2018-11-27 2018-11-27 [facility] [id number] Common 14:00:00 14:00:00 t Bone Bone and Spiri t and Joint [facility] - [facility] 2018-11-19 2018-11-19 [facility] [id number] Common 13:30:00 13:30:00 t Bone Bone and Spiri t and Joint [facility] - [facility] 2018-11-05 2018-11-05 [facility] [id number] Common 09:00:00 09:00:00 t Bone Bone and Spiri t and Joint [facility] - [facility] 2018-08-23 2018-08-23 [facility] [id number] Common 10:30:00 10:30:00 t Bone Bone and Spiri t and Joint [facility] - [facility] 2018-08-09 2018-08-09 [facility] [id number] Common 14:27:00 14:27:00 t Bone Bone and Spiri t and Joint [facility] - [facility] 2018-08-02 2018-08-02 Outpatient Octaviano Caal 21 [id number] Common 08:54:00 08:54:00 t Bone Bone and Spiri t and Joint [facility] - [facility] 2018-07-30 2018-07-30 [facility] [id number] Common 08:30:00 08:30:00 t Bone Bone and Spiri t and [facility] Results Test Description Test Time Test Comments Results Result Sourc e Comments XR Chest 2 Vw 2023-10-05 EXAMINATION: XR Method ist 19:46:54 CHEST 2 Hospital HISTORY: J90 Pleural effusion not elsewhere classified, Left Pleural Effusion s p Thoracentesis Follow up in clinic COMPARISON: 09/25/2023. IMPRESSION: Catheters/Devices: None. Mediastinum: Unchanged slight rightward deviation of the mediastinum. Lungs: slightly increased right lower lung atelectasis. Unchanged extensive left lung atelectasis from the pleural effusion. Pleura: Slight increase in large left pleural effusion . No pneumothorax. Other: None. [id number] Cytology (non-gynecological) request 2023-09-29 16:24:17 Test Item Value Reference Range Interpretation Comme nts Case number (test code = [id number]) [id number] Cytology (non-gynecological) report See link below for PDF Lab Repo rt (test code = 1178) Result status (test code = 5398954) This is Final Report for [id number] [facility] [id number] 14:54:00 Test Item Value Reference Range Interpretation Comments Anaerobic No anaerobic Specimen culture isolate organisms InformationS pecimen (test code = isolated. Source: Pleural 08958-6) fluidSpecimen S ite: LEFT PLEURAL FLUID [facility] [id number] 02:59:00 Test Item Value Reference Range Interpretation Comments Aerobic culture No growth Specimen isolate (test after 3 days. InformationSp ecimen code = 50796-1) Source: Pleu ral fluidSpecimen S ite: LEFT PLEURAL FLUID [facility] [id number] 16:57:00 Test Item Value Reference Range Interpretation Comments AFB stain No acid fast Specimen (test code = bacilli (AFB) InformationSpe cimen 676-7) seen. Source: Pleural fluidSpecimen S ite: LEFT PLEURAL FLUID [facility] count and differential, body [id number] 02:58:00 Test Item Value Reference Range Interpretation Comments [facility] fluid type (test Pleural code = 03711-1) Color, fluid (test code Gates = 6824-7) Appearance, fluid (test Hazy code = 9335-1) RBC, fluid (test code = 52956 See_Comment [Au tomated message] 32078-7) The system [employer] h generated this result transmitted ref erence range: /CMM. Th e reference range was not used to int erpret this result as normal/abnormal . Nucleated cells, fluid 222 See_Comment [Aut omated message] (test code = 85185-8) The sy stem which generated this result transmitted ref erence range: /CMM. Th e reference range was not used to int erpret this result as normal/abnormal . Fluid mononuclear cell See Diff (test code = 1407) Lymphocytes, fluid 21 % (test code = 52339-8) Macrophages, fluid 79 % (test code = 75872-7) [facility]aleGram [id number] 01:53:00 Test Item Value Reference Range Interpretation Comments Gram stain No organisms Specimen isolate (test seen InformationSpe cimen code = 1469) Source: Pleural fluidSpecimen S ite: LEFT PLEURAL FLUID [facility], [facility] [id number] 23:43:00 Test Item Value Reference Range Interpretation Comments Fluid type (test Pleural code = 07196-8) pH, fluid (test code 7.50 Referen ce ranges are not = 2748-2) established for Miscellanous sp ecimens. [facility]ale[facility]ucose level, [facility] [id number] 21:48:00 Test Item Value Reference Range Interpretation Comments Fluid type (test Pleural code = 36393-7) Glucose, fluid 15 mg/dL The reference interval(s) (test code = and other metho d 2344-0) performance spe cifications have not been e stablished for this body f luid. The test results mu st be integrated into the clinical contex t for interpretation. This test has been modifi ed from the sample preparation supervisor?s instructions. T he performance marcella racteristics were determined by Tad tang in a manner consiste nt with CLIA requirements. T his test has not been cleare d or approved by the U.S. Food and Drug Admini stration. [facility] [id number] 21:48:00 Test Item Value Reference Range Interpretation Comments Fluid type (test Pleural code = 05959-8) LDH, fluid (test 1403 U/L The referen ce interval(s) code = 03190-7) and other me thod performance spe cifications have not been e stablished for this body f luid. The test results mu st be integrated into the clinical contex t for interpretation. This test has been modifi ed from the sample preparation supervisor?s instructions. T he performance marcella racteristics were determined by Mishra Denise tang in a manner consiste nt with CLIA requirements. T his test has not been cleare d or approved by the U.S. Food and Drug Admini stration. [facility] [id number] 21:48:00 Test Item Value Reference Range Interpretation Comments Fluid type (test Pleural code = 55948-0) Protein, fluid 4.0 g/dL The reference interval(s) (test code = and other metho d 2881-1) performance spe cifications have not been e stablished for this body f luid. The test results mu st be integrated into the clinical contex t for interpretation. This test has been modifi ed from the sample preparation supervisor?s instructions. T he performance marcella racteristics were determined by Tad tang in a manner consiste nt with CLIA requirements. T his test has not been cleare d or approved by the U.S. Food and Drug Admini stration. [facility]aleXR Chest 1 [id number] 19:51:23EXAMINATION: XR CHEST 1 VW CLINICAL HISTORY: J90 Pleural effusion not elsewhere classified, Post left-sided thoracentesis. COMPARISON: Chest radiograph 08/29/2023, CT chest 08/29/2023. IMPRESSION: 1. Hardware: None. 2. Heart and mediastinum: The cardiomediastinal silhouette is partially obscured. 3. Lungs: Persistent left basilar opacification/atelectasis. No acute airspace disease in the right lung.4. Pleura: Moderate to large left pleural effusion, marginally decreased. No right pleural effusion.No pneumothorax. [id number] Dictated and approved by assistant to the vice president/fellow: Anette Parikh M.D. I, Ana Laura Katz M.D., personally reviewed the images and resident's/fellow's findings and agreewith the final report.[facility] Thoracentesis With [id number] 18:48:22EXAMINATION: US THORACENTESIS WITH IMAGING CLINICAL HISTORY: J90 Pleural effusion not elsewhere classified, left pleural effusion COMPARISON:Chest x-ray dated August 29, 2023 TECHNIQUE:The procedure's risks, benefits, and alternatives were discussed with the patient and written, informed consent was obtained. Using ultrasound guidance, the left pleural effusion was localized and the overlying posterior chest was prepped and draped in the usual sterile fashion. 1% buffered lidocaine was used for local anesthesia. A 5 Hong Konger Yueh catheter was inserted into the pleural space and 1500 mL of pleural fluid was removed. The fluid was sent to the lab for the requested studies. Post procedure images reveal a small residual effusion. The patient tolerated the procedure without difficulty and was discharged to the radiology recovery area for postprocedure chest x-ray prior to discharge. EBL: None. COMPLICATIONS: None. SPECIMENS: As above. ASSISTANTS: None. IMPRESSION: Technically successful ultrasound-guided left-sided diagnostic and therapeutic thoracentesis. After removal of 1.5 L of clear teresa fluid from the left pleural space a moderate amount of fluid remained within the left chest. Patient may benefit from additional therapeutic thoracentesis. [facility]-[id number] Dictated and approved by assistant to the vice president/fellow: Martin Capellan M.D. I, Davood J Abdollahian, MD, was present for hernandes/criticalportions of the procedure. CONRAD Fitzpatrick MD, personally reviewed the images and resident's/fellow's findings and agree with the final report.[facility] Chest External Study 2023-08-29 14:22:45This exam was not acquired at a [facility] facility and has not been interpreted by a [facility] Provider. The exam was imported into our imaging system.[facility] Chest External [id number] 14:02:57This exam was not acquired at a [facility] facility and has not been interpreted by a [facility] Provider. The exam was imported into our imaging system.[facility] Vascular External [id number] 13:53:54This exam was not acquired at a [facility] facility and has not been interpreted by a [facility] Provider. The exam was imported into our imaging system.[facility]
[2023-10-23 04:28] LABS: Absolute Lymphocytes (CBC) 2.5 K/uL (0.7-4.9); Lymphocytes % 33.2 % (15.3-44.8); MCV 83.3 fL (80-100); MPV 6.5 fL (7.6-11.3); Platelets 352 thou/uL (152-406)
[2023-10-23 05:22] LABS: Potassium 3.8 mEq/L (3.5-5.1); Troponin High Sensitivity 33.4 pg/mL (<58.9)
--- NOTE | 2023-10-23 06:50 | ER ---
Nurse's Notes [facility] Name: Fidel Madrid Age: 82 yrs Sex: Male : 1940 Arrival Date: 10/23/2023 Time: 03:35 Bed 3 Private MD: Diagnosis: Pleural effusion, not elsewhere classified;Shortness of breath Presentation: 10/23 03:53 Chief complaint: Patient states: SOB beginning 1700 yesterday. thoracentesis scheduled lg3 with restoration 11/01. denies pain at this time. Coronavirus screen: Client denies travel out of the [place] in the last 14 days. At this time, the client does not indicate any symptoms associated with coronavirus-19. Ebola Screen: No symptoms or risks identified at this time. Initial Sepsis Screen: Does the patient meet any 2 criteria? No. Patient's initial sepsis screen is negative. Does the patient have a suspected source of infection? No. Patient's initial sepsis screen is negative. Risk Assessment: Do you want to hurt yourself or someone else? Patient reports no desire to harm self or others. Onset of symptoms was October 22, 2023. 03:53 Method Of Arrival: Wheelchair lg3 03:53 Acuity: TERESA 3 lg3 Triage Assessment: 03:56 General: Appears in no apparent distress. comfortable, Behavior is calm, cooperative. lg3 Pain: Denies pain. EENT: No deficits noted. No signs and/or symptoms were reported regarding the EENT system. Neuro: No deficits noted. Dela Cruz Agitation-Sedation Scale (RASS): 0 - Alert and Calm Level of Consciousness is awake, alert, obeys commands, Oriented to person, place, time, situation. Cardiovascular: No deficits noted. Denies chest pain, Capillary refill < 3 seconds Clubbing of nail beds is absent JVD is absent Patient's skin is warm and dry. Respiratory: Reports shortness of breath Onset: The symptoms/episode began/occurred yesterday, the patient has mild shortness of breath. GI: No deficits noted. No signs and/or symptoms were reported involving the gastrointestinal system. : No deficits noted. No signs and/or symptoms were reported regarding the genitourinary system. Derm: No deficits noted. No signs and/or symptoms reported regarding the dermatologic system. Skin is intact, is healthy with good turgor, Skin is dry, Skin is normal, Skin temperature is warm. Musculoskeletal: No deficits noted. No signs and/or symptoms reported regarding the musculoskeletal system. Circulation, motion, and sensation intact. Range of motion: intact in all extremities. Historical: - Allergies: 03:56 No Known Allergies; lg3 - Home Meds: 03:56 atenolol 100 mg Oral tablet daily [Active]; irbesartan 150 mg oral tablet daily lg3 [Active]; finasteride 5 mg oral tablet daily [Active]; simvastatin 40 mg Oral tablet daily [Active]; famotidine 40 mg Oral tablet daily [Active]; tamsulosin 0.4 mg oral capsule daily [Active]; clopidogrel 75 mg oral tablet daily [Active]; torsemide 20 mg oral tablet daily [Active]; - PMHx: 03:56 Cerebrovascular accident; Hypercholesterolemia; Hypertensive disorder; lg3 - PSHx: 03:56 hernia repair; right hand (hernia repair); thoracentesis (hernia repair); lg3 - Immunization history:: Adult Immunizations up to date, Client reports receiving the 2nd dose of the Covid vaccine, Flu vaccine is up to date. - Social history:: Smoking status: Patient denies any tobacco usage or history of. Patient/guardian denies using alcohol, street drugs. Screenin:12 [facility] ED Fall Risk Assessment (Adult) History of falling in the last 3 months, jw7 including since admission No falls in past 3 months (0 pts) Score/Fall Risk Level 0 - 2 = Low Risk Oriented to surroundings, Maintained a safe environment. Abuse screen: Denies threats or abuse. Denies injuries from another. Nutritional screening: No deficits noted. Tuberculosis screening: No symptoms or risk factors identified. Assessment: 04:00 General: see triage assessment. jw7 05:37 Reassessment: Patient appears in no apparent distress at this time. No changes from jw7 previously documented assessment. Patient and/or family updated on plan of care and expected duration. Pain level reassessed. Patient is alert, oriented x 3, equal unlabored respirations, skin warm/dry/pink. 06:41 Reassessment: Patient appears in no apparent distress at this time. No changes from jw7 previously documented assessment. Patient and/or family updated on plan of care and expected duration. Pain level reassessed. Patient is alert, oriented x 3, equal unlabored respirations, skin warm/dry/pink. Vital Signs: 03:53 BP 164 / 113; Pulse 69; Resp 19 S; Temp 97.6(O); Pulse Ox 96% on R/A; Weight 89.81 kg lg3 (R); Height 5 ft. 10 in. (R); Pain 0/10; 05:00 BP 124 / 96; Pulse 70; Resp 17 S; Pulse Ox 96% on R/A; jw7 06:00 BP 127 / 87; Pulse 71; Resp 17 S; Pulse Ox 96% on R/A; jw7 06:58 BP 154 / 98; Pulse 67; Resp 18 S; Pulse Ox 96% on R/A; as6 09:56 BP 125 / 89; Pulse 67; Resp 18; Pulse Ox 98% ; ko1 03:53 Body Mass Index 28.41 (89.81 kg, 177.8 cm) lg3 03:53 Pain Scale: Adult lg3 ED Course: 03:38 Patient arrived in ED. jj6 03:41 Thomas Langley DO is Attending Physician. ms3 03:56 Triage completed. lg3 03:56 EKG done, by ED staff, reviewed by Thomas Langley DO. jw7 03:56 Arm band placed on right wrist. lg3 04:12 Initial lab(s) drawn, by ne, sent to lab. Inserted saline lock: 22 gauge in right jw7 forearm, using aseptic technique. Blood collected. 04:12 Patient has correct armband on for positive identification. Bed in low position. Call 7 light in reach. Side rails up X2. 05:31 Chest Pa And Lat (2 Views) XRAY In Process Unspecified. EDMS 06:49 Parag De León MD is Hospitalizing Provider. ms3 07:36 Fidelina Marie, ABRAHAM is Primary Nurse. ko1 08:15 Ptt, Activated Sent. ko1 08:15 PT-INR Sent. ko1 09:56 No provider procedures requiring assistance completed. ko1 09:56 Provided Education on: Procedure Consent. ko1 Administered Medications: No medications were administered Medication: 09:56 VIS not applicable for this client. ko1 Outcome: 06:49 Decision to Hospitalize by Provider. ms3 10:48 Patient left the ED. ko1 Signatures: Dispatcher [employer] EDMS Zakia Calvillo, RN RN lg3 Thomas Langley DO DO ms3 Jamilah Leo jj6 Rishi Maguire, RN RN as6 Dacia Baires, RN RN jw7 Fidelina Marie, RN RN ko1
--- NOTE | 2023-10-23 06:50 | EDPHYS ---
Physician Documentation [facility] Name: Fidel Madrid Age: 82 yrs Sex: Male : 1940 Arrival Date: 10/23/2023 Time: 03:35 Bed 3 Private MD: ED Physician Thomas Langley HPI: 10/23 03:49 This 82 yrs old Male presents to ER via Unassigned with complaints of Shortness Of ms3 Breath, Thoracentesis is scheduled for 11/01/23. Pt has also d/c Plavix 2+ days ago.. 03:49 82-year-old male with past medical history of hypertension, TIA, hyperlipidemia ms3 presents to the emergency department for shortness of breath that began around 5 PM last night. Patient states he recently had thoracentesis of the left lung and has a thoracentesis scheduled for November 01, 2023 at [facility]. Patient states he has not taken his Lasix for the previous 2 days. Historical: - Allergies: 03:56 No Known Allergies; lg3 - Home Meds: 03:56 atenolol 100 mg Oral tablet daily [Active]; irbesartan 150 mg oral tablet daily lg3 [Active]; finasteride 5 mg oral tablet daily [Active]; simvastatin 40 mg Oral tablet daily [Active]; famotidine 40 mg Oral tablet daily [Active]; tamsulosin 0.4 mg oral capsule daily [Active]; clopidogrel 75 mg oral tablet daily [Active]; torsemide 20 mg oral tablet daily [Active]; - PMHx: 03:56 Cerebrovascular accident; Hypercholesterolemia; Hypertensive disorder; lg3 - PSHx: 03:56 hernia repair; right hand (hernia repair); thoracentesis (hernia repair); lg3 - Immunization history:: Adult Immunizations up to date, Client reports receiving the 2nd dose of the Covid vaccine, Flu vaccine is up to date. - Social history:: Smoking status: Patient denies any tobacco usage or history of. Patient/guardian denies using alcohol, street drugs. ROS: 03:49 Constitutional: Negative for fever, and chills. Neck: Negative for injury, pain, and ms3 swelling, Cardiovascular: Negative for chest pain, and palpitations. 03:49 MS/Extremity: Negative for injury and deformity, Skin: Negative for injury, rash, and discoloration, 03:49 Respiratory: Positive for shortness of breath, 03:49 All other systems are negative, Exam: 03:49 Constitutional: This is a well developed, well nourished patient who is awake, alert, ms3 and in no acute distress. Head/Face: Normocephalic, atraumatic. Chest/axilla: Normal chest wall appearance and motion. Nontender with no deformity. Cardiovascular: Regular rate and rhythm with a normal S1 and S2. No gallops, murmurs, or rubs. Normal PMI, no JVD. No pulse deficits. 03:49 Skin: Warm, dry with normal turgor. Normal color with no rashes, no lesions, and no evidence of cellulitis. MS/ Extremity: Pulses equal, no cyanosis. Neurovascular intact. Full, normal range of motion. 03:49 Respiratory: the patient does not display signs of respiratory distress, Respirations: no acute changes, Breath sounds: decreased breath sounds, that are moderate, are heard in the left posterior upper lobe and left posterior lower lobe, 07:27 ECG was reviewed by the Attending Physician. ms3 Vital Signs: 03:53 BP 164 / 113; Pulse 69; Resp 19 S; Temp 97.6(O); Pulse Ox 96% on R/A; Weight 89.81 kg lg3 (R); Height 5 ft. 10 in. (R); Pain 0/10; 05:00 BP 124 / 96; Pulse 70; Resp 17 S; Pulse Ox 96% on R/A; jw7 06:00 BP 127 / 87; Pulse 71; Resp 17 S; Pulse Ox 96% on R/A; jw7 06:58 BP 154 / 98; Pulse 67; Resp 18 S; Pulse Ox 96% on R/A; as6 09:56 BP 125 / 89; Pulse 67; Resp 18; Pulse Ox 98% ; ko1 03:53 Body Mass Index 28.41 (89.81 kg, 177.8 cm) lg3 03:53 Pain Scale: Adult lg3 MDM: 03:48 Patient medically screened. ms3 03:49 Differential diagnosis: CHF exacerbation, Myocardial Infarction pneumonia, pulmonary ms3 edema, Pleural effusion. 07:28 Data reviewed: vital signs, nurses notes. ms3 10/23 03:49 Order name: Basic Metabolic Panel; Complete Time: 05:37 ms3 10/23 03:49 Order name: CBC with Diff; Complete Time: 04:41 ms3 10/23 03:49 Order name: Troponin HS; Complete Time: 05:37 ms3 10/23 03:49 Order name: NT PRO-BNP; Complete Time: 05:37 ms3 10/23 07:59 Order name: PT-INR em1 10/23 07:59 Order name: Ptt, Activated em1 10/23 08:32 Order name: Protime (+INR) EDMS 10/23 08:32 Order name: PTT, Activated Partial Thromb EDMS 10/23 03:49 Order name: Chest Pa And Lat (2 Views) XRAY ms3 10/23 07:12 Order name: Chest EDMS 10/23 09:29 Order name: RAD EDMS 10/23 09:29 Order name: US EDMS 10/23 03:49 Order name: EKG; Complete Time: 03:49 ms3 10/23 07:25 Order name: Respiratory Therapy Consult EDMS 10/23 03:49 Order name: Cardiac monitoring; Complete Time: 03:56 ms3 10/23 03:49 Order name: EKG - Nurse/Tech; Complete Time: 03:56 ms3 10/23 03:49 Order name: IV Saline Lock; Complete Time: 04:14 ms3 10/23 03:49 Order name: Labs collected and sent; Complete Time: 04:14 ms3 10/23 03:49 Order name: O2 Per Protocol; Complete Time: 03:56 ms3 10/23 03:49 Order name: O2 Sat Monitoring; Complete Time: 03:56 ms3 EC:27 Rate is 68 beats/min. Rhythm is irregularly irregular. QRS [place] is Normal. Clinical ms3 impression: Atrial Fibrillation. Interpreted by me. Reviewed by me. Administered Medications: No medications were administered Disposition Summary: 10/23/23 06:49 Hospitalization Ordered Notes: Hospitalization Status: Inpatient Admission ms3 Provider: Parag De León ms3 Location: Telemetry/MedSurg (Inpatient) ms3 Condition: Stable ms3 Problem: new ms3 Symptoms: are unchanged ms3 Bed/Room Type: Standard ms3 Room Assignment: ms3 Diagnosis - Pleural effusion, not elsewhere classified ms3 - Shortness of breath ms3 Forms: - Medication Reconciliation Form ms3 - SBAR form ms3 - Leadership Thank You Letter ms3 Signatures: Dispatcher [employer] EDMS Calvillo, Zakia, ABRAHAM RN lg3 Thomas Langley DO DO ms3
[2023-10-23 08:32] LABS: Protime INR 1.1
--- NOTE | 2023-10-23 09:29 | RAD REPORT ---
EXAM DESCRIPTION: US - Thoracentesis w/ US Guide - 10/23/2023 9:09 am CLINICAL HISTORY: Pleural effusion. Left Pleural Effusion COMPARISON: No comparisons FINDINGS: Preoperative diagnosis: Left pleural effusion Post operative diagnosis: Same Conscious Sedation: None. Estimated blood loss: Minimal Specimens:A small volume of fluid was sent for requested lab studies. The patient was placed in the upright recumbent position and the left chest wall was prepped and drap ed in the usual sterile fashion. 1% Lidocaine was infiltrated into the soft tissues for local anesth esia. Under sonographic guidance, a thoracentesis needle and 6 Ukrainian catheter was advanced into the left pleural space. Approximately 1500 serosanguineous was aspirated. Samples were sent to pathology for requested analysis. The patient tolerated the procedure without immediate complication and trans ferred to the floor in stable condition. IMPRESSION: Successful ultrasound-guided thoracentesis as detailed.
--- NOTE | 2023-10-23 09:29 | RAD REPORT ---
EXAM DESCRIPTION: RAD - Chest Single View - 10/23/2023 9:09 am CLINICAL HISTORY: POST THORA COMPARISON: Chest Pa And Lat (2 Views) dated 10/23/2023; Chest Single View dated 08/29/2023; Chest Pa And Lat (2 Views) dated 04/29/2022; Chest Pa And Lat (2 Views) dated 01/06/2020; Thoracentesis w/ US G uide dated 10/23/2023; Chest For Pe Angio dated 08/29/2023 FINDINGS: Interval left-sided thoracentesis with some improvement in aeration of left upper lung. Th ere is likely still a large volume of residual fluid. Note that 1.5 liters were aspirated. There is s till some shift from left to right. Cardiac silhouette is largely obscured. IMPRESSION: Interval left-sided thoracentesis with some improvement in aeration of the left upper cuca ng. Note that 1.5 liters of fluid was aspirated. No pneumothorax. There is probably still a moderate to large effusion.
[2023-10-23 10:04] VITALS: BMI 27.9
[2023-10-23 11:07] VITALS: TEMP 97.6
[2023-10-23 11:12] VITALS: BP 125/89; O2SAT 98
--- NOTE | 2023-10-23 12:58 | P.SSS ---
Patient History Date of Service: 10/23/23 Reason for admission: DYSPNEA History of Present Illness: MR COBB HAS LARGE EFFUSION ON L SIDE. DR. LOPES DID DIAGNOSTIC TAP IN [place] AND CYTOLOGY WAS NEGATIVE. HE IS HERE 9 DAYS BEFORE SCHEDULED PERMANENT CATHETER HE CAN'T BREATH ANY LONGER. DR. ALLAN WAS ABLE TO REMOVE 1.5 LT AND HE IS FEELING BETTER. HE IS GOING HOME WITH FU WITH DR. LOPES. I ALREADY HAVE COMMUNICATED WITH DR. LOPES TO GET HIM EARLIER THAN . HE IS STABLE FOR HOME. I SUSPECT MALIGNANCY OF PLEURA BUT CYTOLOGY IS NEGATIVE. DR. LOPES WILL LOOK AT THIS AGAIN. I ALSO TOLD DR. ALLAN TO SEND ALL FLUID FOR CYTOLOGY IF CAN. Allergies No Known Drug Allergies Allergy (Verified 05/02/22 08:05) Unknown Home Medications: Cinnamon Bark [Cinnamon] 500 mg PO DAILY 08/09/18 Finasteride 5 mg PO DAILY 08/09/18 Glucosamine HCl/Chondroitin Gustafson [Glucosamine-Chondroitin Cap] 1 mg PO DAILY 08/09/18 Multivitamin [Multiple Vitamins] 1 mg PO DAILY 08/09/18 Potassium Gluconate [Potassium] 99 mg PO DAILY 08/09/18 Simvastatin 40 mg PO DAILY 08/09/18 atenoloL [Atenolol] 100 mg PO DAILY 08/09/18 Ascorbic Acid [Vitamin C] 1,000 mg PO DAILY 04/29/22 Cyanocobalamin [Vitamin B-12] 1,000 mcg PO DAILY 04/29/22 Famotidine [Pepcid] 40 mg PO DAILY 04/29/22 Irbesartan 150 mg PO DAILY 04/29/22 Zinc 50 mg PO DAILY 04/29/22 Calcium Citrate/Vitamin D3 [Calcium Citrate-Vit D3 Tablet] 1 tab PO DAILY 08/29/23 Clopidogrel Bisulfate [Plavix] 75 mg PO DAILY 08/29/23 Tamsulosin [Flomax*] 0.4 mg PO DAILY 08/29/23 Torsemide [Demadex*] 20 mg PO DAILY 08/29/23 - Past Medical/Surgical History Has patient received pneumonia vaccine in the past: Yes Diabetic: No -: CVA -: HTN -: HLD -: Hernia Repair - Social History Alcohol use: No CD- Drugs: No Caffeine use: No Review of Systems 10-point ROS is otherwise unremarkable General: Weakness Respiratory: Shortness of Breath Physical Examination - Vital Signs Temperature: 97.6 F Blood Pressure: 125/89 Pulse: 67 Respirations: 18 - Physical Exam General: Oriented x3 HEENT: Atraumatic, PERRLA, Mucous membr. moist/pink, EOMI, Sclerae nonicteric Neck: Supple, 2+ carotid pulse no bruit, No LAD, Without JVD or thyroid abnormality Respiratory: Diminished (L SIDE WITH DULLNESS ON PERCUSSION ALL THE WAY TO L UPPER BACK. ) Cardiovascular: Regular rate/rhythm, Normal S1 S2 Gastrointestinal: Normal bowel sounds, No tenderness Musculoskeletal: No tenderness Integumentary: No rashes Neurological: Normal gait, Normal speech, Normal strength at 5/5 x4 extr, Normal tone, Normal affect Lymphatics: No axilla or inguinal lymphadenopathy - Studies Laboratory Data (last 24 hrs) 10/23/23 10/23/23 04:09 04:09 WBC 7.70 Hgb 15.3 Hct 45.0 Plt Count 352 Sodium 134 L Potassium 3.8 BUN 15 Creatinine 1.10 Glucose 134 H - Diagnosis (Problem(s)) (1) Pleural effusion, left Status: Chronic Plan: LIBORIO SMITH IN PROCESS. DR. LOPES TO . STABLE FOR HOME. - Disposition Disposition: ROUTINE DISCHARGE Condition: GOOD
--- NOTE | 2023-10-23 13:02 | RAD REPORT ---
EXAM DESCRIPTION: RAD - Chest Pa And Lat (2 Views) - 10/23/2023 5:29 am CLINICAL HISTORY: The patient is 82 years old and is Male; DYSPNEA TECHNIQUE: Frontal and lateral views of the chest. COMPARISON: No relevant prior studies available. FINDINGS: Lungs: Complete opacification of the left hemithorax which may be due to a large pleural effusion. Pleural space: See above. Heart: Unremarkable. Mediastinum: Suggestion of some mediastinal shift to the right. Bones/joints: No acute findings. IMPRESSION: 1. Complete opacification of the left hemithorax which may be due to a large pleural e ffusion. 2. Suggestion of some mediastinal shift to the right. Electronically signed by: Tomy Smith MD 10/23/2023 06:13 AM WEB PRESSMAN Due to temporary technical issues with the PACS/Fluency reporting system, reports are being signed by the in house radiologist without review as a courtesy to ensure prompt reporting. The interpreting r adiologist is fully responsible for the content of the report.
--- NOTE | 2023-10-24 13:32 | EKG ---
Test Date: 2023-10-23 Test Time: 03:52:03 Sidehand: ARUN MEASUREMENT RESULTS: Intervals: Rate: 68 NV: QRSD: 86 QT: 416 QTc: 442 [place]: P: NV: QRS: 45 T: 24 INTERPRETIVE STATEMENTS: Atrial fibrillation Low voltage QRS Abnormal ECG Compared to ECG 08/30/2023 08:14:24 Low QRS voltage now present Sinus rhythm no longer present Electronically Signed On 10-24-23 13:27:31 CYLINDER HANDLER by Junaid Pierre
== END 2023-10-23 10:47 | disposition home or self-care (01) | DRG 188 ==
LOC: ER 03:35 → ERHOLD 07:47
PROVIDERS: ADMIT Internal Medicine; ATTEND Internal Medicine
PROC: 0W9B3ZZ Drainage of Left Pleural Cavity, Percutaneous Approach (ICD-10-PCS; principal; 2023-10-23)
DX: J90 Pleural effusion, not elsewhere classified (principal); I10 Essential (primary) hypertension; E78.00 Pure hypercholesterolemia, unspecified; Z86.73 Personal history of transient ischemic attack (TIA), and cerebral infarction without residual deficits; Z79.02 Long term (current) use of antithrombotics/antiplatelets; Z79.899 Other long term (current) drug therapy
CPT/HCPCS: 32555; 36415; 71045; 71046; 80048; 83880; 84484; 85025; 85610; 85730; 93005; 99284

== ENCOUNTER → 2024-01-04 | Emergency (ER) | payer OTHER, MEDICARE ==
[~2024-01-04] MED LIST: ASPIRIN EC 81 MG TAB PO ONE; NA CHLORIDE 0.9% 1,000 ML ONE
[2024-01-04 08:35] LABS: Absolute Lymphocytes (CBC) 1.8 K/uL (0.7-4.9); Hematocrit 34.4 % (39.6-49.0); Lymphocytes % 22.4 % (15.3-44.8); MCV 77.3 fL (80-100); MPV 5.8 fL (7.6-11.3); Platelets 548 thou/uL (152-406); RBC Red Blood Cell Count 4.45 M/uL (4.33-5.43)
[2024-01-04 08:37] LABS: Protime INR 1.18
[2024-01-04 08:53] LABS: Albumin 2.4 g/dL (3.4-5.0); Bilirubin Direct 0.1 mg/dL (0-0.2); Bilirubin Indirect, Calculated 0.3 mg/dL (0.2-0.8); Bilirubin Total 0.4 mg/dL (0.2-1.0); Magnesium 2.1 mg/dL (1.6-2.4); Potassium 3.6 mEq/L (3.5-5.1); Protein, Total 7.1 g/dL (6.4-8.2); Troponin High Sensitivity 15.2 pg/mL (<58.9)
--- NOTE | 2024-01-04 09:00 | RAD REPORT ---
EXAM DESCRIPTION: CT - Head Brain Wo Cont - 01/04/2024 8:46 am CLINICAL HISTORY: Numbness COMPARISON: 2022 TECHNIQUE: Computed axial tomography of the head was obtained. IV contrast was not requested. All CT scans are performed using dose optimization technique as appropriate and may include automated exposure control or mA/KV adjustment according to patient size. FINDINGS: An intracranial bleed is not seen The ventricles are normal in caliber No extra-axial fluid collection is noted. Mild low-density areas within periventricular, deep and subcortical white matter likely represent isc hemic changes secondary to small vessel disease. Fluid within the sinuses/ mastoids is not seen. IMPRESSION: No acute intracranial abnormality is seen If patient's symptoms persist MRI of the brain would be recommended
--- NOTE | 2024-01-04 09:16 | RAD REPORT ---
EXAM DESCRIPTION: Ermelinda Angio01/04/2024 8:46 am CLINICAL HISTORY: Numbness COMPARISON: None TECHNIQUE: 100 cc Isovue [address] angiogram of the neck was obtained. 3D MIPS reconstruction performed. All CT scans are performed using dose optimization technique as appropriate and may include automated exposure control or mA/KV adjustment according to patient size. FINDINGS: Mild plaque is present within common carotid, internal carotid and external carotid arteri es bilaterally Mild plaque in the vertebral arteries. No dissection is seen. No high-grade stenosis IMPRESSION: No significant abnormality displayed Nascet crieria Mild stenosis 0 to 49 % Moderate stenosis 50-69% Severe stenosis 70-99%
--- NOTE | 2024-01-04 09:16 | RAD REPORT ---
EXAM DESCRIPTION: CTHead angio01/04/2024 8:46 am CLINICAL HISTORY: numbness COMPARISON: none TECHNIQUE: 100 cc Isovue [address] angiogram of the head was obtained. 3D MIPS reconstruction performed. All CT scans are performed using dose optimization technique as appropriate and may include automated exposure control or mA/KV adjustment according to patient size. FINDINGS: The basilar, distal internal carotid anterior cerebral, middle cerebral and posterior cere bral arteries do not demonstrate a significant stenosis Hypoplastic A1 segment right anterior cerebral artery An aneurysm is not seen No large vessel occlusion IMPRESSION: No significant abnormality is displayed
--- NOTE | 2024-01-04 09:27 | RAD REPORT ---
EXAM DESCRIPTION: CT - Thorax Wo Con - 01/04/2024 8:46 am CLINICAL HISTORY: cough COMPARISON: August 2023 TECHNIQUE: Computed axial tomography of the chest was obtained. Contrast was not requested. All CT scans are performed using dose optimization technique as appropriate and may include automated exposure control or mA/KV adjustment according to patient size. FINDINGS: The evaluation of mediastinum, hawa and vessels is limited secondary to lack of IV contras t administration. A chest tube is present within a loculated left pleural effusion posteriorly There is a large additional loculated pleural effusion which occupies most of the anterior and mid th e left pleural space. Mild left atelectasis Mild right lower lobe opacities No mediastinal or hilar lymphadenopathy seen Aortic root 4.4 centimeters IMPRESSION: Large loculated left pleural effusion
--- NOTE | 2024-01-04 09:38 | RAD REPORT ---
EXAM DESCRIPTION: MRI - Brain Wo Cont - 01/04/2024 9:24 am CLINICAL HISTORY: Numbness COMPARISON: 2022 MRI TECHNIQUE: Axial, sagittal, and coronal magnetic resonance images of the brain were obtained. FINDINGS: Mild signal within periventricular, deep and subcortical white matter probably ischemic ch anges secondary to small vessel disease Diffusion-weighted/ADC mapping does not reveal evidence of acute infarction. The ventricles are normal caliber. An extra-axial fluid collection is not noted. Fluid within the sinuses/mastoids is not seen Mild central spinal stenosis upper cervical spine IMPRESSION: No acute intracranial abnormality noted
--- NOTE | 2024-01-04 09:40 | RAD REPORT ---
EXAM DESCRIPTION: ABDOULAYEMikkit Single View01/04/2024 9:29 am CLINICAL HISTORY: Cough COMPARISON: October 2023 FINDINGS: Large loculated left pleural effusion with shift of the mediastinum towards the right Left chest tube in place Mild right lower lobe opacities
[2024-01-04 09:55] LABS: Specific Gravity 1.028 (1.005-1.030); Urine Bilirubin NEGATIVE (Negative); Urine Blood Negative (Negative); Urine Clarity Clear (Clear); Urine Color Colorless (Yellow); Urine Glucose NEGATIVE (Negative); Urine Protein NEGATIVE (Negative); Urine Urobilinogen Normal (Normal)
--- NOTE | 2024-01-04 10:01 | ER ---
Nurse's Notes [facility] Name: Fdiel Madrid Age: 83 yrs Sex: Male : 1940 Arrival Date: 01/04/2024 Time: 07:47 Bed 16 Private MD: Parag De León V Diagnosis: Paresthesia of skin;Malignant pleural effusion-large left , loculated Presentation: 01/04 07:54 Chief complaint: Patient states: woke up this morning and felt like he had numbness iw across bottom lip, also feeling light headed and shaky, he had a TIA this past summer , was started on Plavix by Dr. De León, also had recent lung cancer diagnosis , has not started treatment. Coronavirus screen: At this time, the client does not indicate any symptoms associated with coronavirus-19. 07:54 Acuity: TERESA 3 iw 07:55 Ebola Screen: Patient denies travel to an Ebola-affected area in the 21 days before [facility] illness onset. Initial Sepsis Screen: Does the patient meet any 2 criteria? No. Patient's initial sepsis screen is negative. Does the patient have a suspected source of infection? No. Patient's initial sepsis screen is negative. Risk Assessment: Do you want to hurt yourself or someone else? Patient reports no desire to harm self or others. 07:55 Method Of Arrival: Wheelchair [facility] 08:09 Onset of symptoms was January 04, 2024. iw Triage Assessment: 08:00 Headache History: Denies prior headaches. General: Appears in no apparent distress. rs5 comfortable, Behavior is calm, cooperative. Pain: Also complains of no other associated symptoms. Pain: Denies pain. Historical: - Allergies: 07:54 No Known Drug Allergies; [facility] - Home Meds: 08:09 amiodarone 200 mg Oral tablet daily [Active]; metoprolol tartrate 50 mg Oral tablet 2 iw times per day [Active]; cyanocobalamin (vitamin B-12) 100 mcg oral tablet daily [Active]; 08:29 famotidine 40 mg Oral tablet daily [Active]; finasteride 5 mg oral tablet daily iw [Active]; simvastatin 40 mg Oral tablet daily [Active]; Vitamin D3 25 mcg (1,000 unit) oral capsule 2 times per day [Active]; trazodone 50 mg Oral tablet nightly [Active]; benzonatate 100 mg oral capsule 3 times per day [Active]; promethazine-DM 6.25-15 mg/5 mL Oral syrup [Active]; multivitamin oral tablet daily [Active]; - PMHx: 07:54 Cerebrovascular accident; Hypercholesterolemia; Hypertensive disorder; ll1 - PSHx: 07:54 hernia repair; right hand (r); THORACENTESIS (r); ll1 - Immunization history:: Adult Immunizations up to date. - Social history:: Smoking status: Patient denies any tobacco usage or history of. Screenin:00 [facility] ED Fall Risk Assessment (Adult) History of falling in the last 3 months, rs5 including since admission No falls in past 3 months (0 pts) Confusion or Disorientation No (0 pts) Intoxicated or Sedated No (0 pts) Impaired Gait No (0 pts) Mobility Assist Device Used No (0 pt) Altered Elimination No (0 pt) Score/Fall Risk Level 0 - 2 = Low Risk Oriented to surroundings, Maintained a safe environment. Abuse screen: Denies threats or abuse. Nutritional screening: No deficits noted. Tuberculosis screening: No symptoms or risk factors identified. Assessment: 08:00 General: Appears in no apparent distress. comfortable, Behavior is calm, cooperative. rs5 Pain: Denies pain. 08:00 Neuro: Level of Consciousness is awake, alert, obeys commands, Oriented to person, rs5 place, time, situation. Neuro: Offal Trimmer are equal bilaterally Moves all extremities. Gait is steady, Speech is normal, Facial symmetry appears normal, Pupils are PERRLA, Intact. Neuro: Reports numbness of the mouth that started one hour ago and dizziness. Cardiovascular: Patient's skin is warm and dry. Rhythm is regular. Respiratory: Respiratory effort is even, unlabored, Respiratory pattern is regular, symmetrical. GI: Abdomen is round non-distended. GI: Abd is soft and non tender X 4 quads. : No signs and/or symptoms were reported regarding the genitourinary system. EENT: No signs and/or symptoms were reported regarding the EENT system. Derm: Skin is intact, Skin is pink, warm \T\ dry. Musculoskeletal: Circulation, motion, and sensation intact. Range of motion: intact in all extremities. 09:21 Reassessment: No changes from previously documented assessment. rs5 10:01 Reassessment: Patient and/or family updated on plan of care and expected duration. Pain rs5 level reassessed. Patient is alert, oriented x 3, equal unlabored respirations, skin warm/dry/pink. Vital Signs: 08:11 BP 149 / 98; Pulse 93; Resp 18; Temp 98.1; Pulse Ox 99% on R/A; Weight 82.55 kg; Height iw 5 ft. 10 in. ; Pain 0/10; 10:01 BP 140 / 92; Pulse 88; Resp 17; Pulse Ox 99% on R/A; rs5 08:11 Body Mass Index 26.11 (82.55 kg, 177.8 cm) iw 08:11 Pain Scale: Adult iw Alex Coma Score: 09:56 Eye Response: spontaneous(4). Motor Response: obeys commands(6). Verbal Response: marcella oriented(5). Total: 15. ED Course: 07:49 Patient arrived in ED. rg4 07:49 Parag De León MD is Private Physician. rg4 07:53 John Bojorquez MD is Attending Physician. marcella 07:54 Arm band placed on Patient placed in an exam room, on a stretcher. ll1 08:00 Patient has correct armband on for positive identification. Bed in low position. Call rs5 light in reach. Side rails up X2. 08:00 No provider procedures requiring assistance completed. rs5 08:03 Jose Carmona, RN is Primary Nurse. rs5 08:08 Triage completed. iw 08:47 CT Head Angio In Process Unspecified. EDMS 08:48 CT Neck Angio In Process Unspecified. EDMS 08:48 CT Head Brain wo Cont In Process Unspecified. EDMS 08:48 CT Chest Wo Con In Process Unspecified. EDMS 09:26 Brain Wo Cont In Process Unspecified. EDMS 09:28 XRAY Chest (1 view) In Process Unspecified. EDMS 09:59 Parag De León MD is Referral Physician. marcella 10:15 IV discontinued, intact, bleeding controlled, No redness/swelling at site. Pressure rs5 dressing applied. Administered Medications: 08:20 Drug: NS 0.9% IV 1000 ml IV at 1 bolus Per protocol; 1000 mL bolus Route: IV; Rate: 1 rs5 bolus; Site: right antecubital; 08:40 Follow up: Response: No adverse reaction rs5 10:00 Drug: Aspirin PO Chewable Tablet 81 mg PO once Route: PO; rs5 Medication: 08:40 VIS not applicable for this client. rs5 Outcome: 10:01 Discharge ordered by . marcella 10:15 Discharged to home ambulatory, rs5 10:15 Condition: stable 10:15 Discharge instructions given to patient, Instructed on discharge instructions, follow up and referral plans. Demonstrated understanding of instructions, follow-up care, 10:21 Patient left the ED. rs5 Signatures: Dispatcher [employer] EDJohn Garcia MD MD cha Williams, Irene, RN Yolanda Lemos rg4 Fredis Almodovar RN RN ll1 Jose Carmona RN RN rs5
--- NOTE | 2024-01-04 10:01 | EDPHYS ---
Physician Documentation [facility] Name: Fidel Madrid Age: 83 yrs Sex: Male : 1940 Arrival Date: 01/04/2024 Time: 07:47 Bed 16 Private MD: Parag De León V ED Physician John Bojorquez HPI: 01/04 09:51 This 83 yrs old Male presents to ER via Wheelchair with complaints of marcella Numbness Of Mouth, Headache. Historical: - Allergies: 07:54 No Known Drug Allergies; ll1 - Home Meds: 08:09 amiodarone 200 mg Oral tablet daily [Active]; metoprolol tartrate 50 mg Oral tablet 2 iw times per day [Active]; cyanocobalamin (vitamin B-12) 100 mcg oral tablet daily [Active]; 08:29 famotidine 40 mg Oral tablet daily [Active]; finasteride 5 mg oral tablet daily iw [Active]; simvastatin 40 mg Oral tablet daily [Active]; Vitamin D3 25 mcg (1,000 unit) oral capsule 2 times per day [Active]; trazodone 50 mg Oral tablet nightly [Active]; benzonatate 100 mg oral capsule 3 times per day [Active]; promethazine-DM 6.25-15 mg/5 mL Oral syrup [Active]; multivitamin oral tablet daily [Active]; - PMHx: 07:54 Cerebrovascular accident; Hypercholesterolemia; Hypertensive disorder; ll1 - PSHx: 07:54 hernia repair; right hand (r); THORACENTESIS (r); ll1 - Immunization history:: Adult Immunizations up to date. - Social history:: Smoking status: Patient denies any tobacco usage or history of. ROS: 09:53 Constitutional: Negative for fever, chills, and weight loss, Eyes: Negative for injury, marcella pain, redness, and discharge, ENT: Negative for injury, pain, and discharge, Neck: Negative for injury, pain, and swelling, Cardiovascular: Negative for chest pain, palpitations, and edema, Respiratory: Negative for shortness of breath, cough, wheezing, and pleuritic chest pain, Abdomen/GI: Negative for abdominal pain, nausea, vomiting, diarrhea, and constipation, Back: Negative for injury and pain, : Negative for injury, bleeding, discharge, and swelling, MS/Extremity: Negative for injury and deformity, Skin: Negative for injury, rash, and discoloration, Psych: Negative for depression, anxiety, suicide ideation, homicidal ideation, and hallucinations, Allergy/Immunology: Negative for hives, rash, and allergies, Endocrine: Negative for neck swelling, polydipsia, polyuria, polyphagia, and marked weight changes, 09:53 Neuro: Positive for numbness, of the mouth, Exam: 09:53 Constitutional: This is a well developed, well nourished patient who is awake, alert, marcella and in no acute distress. Head/Face: Normocephalic, atraumatic. Eyes: Pupils equal round and reactive to light, extra-ocular motions intact. Lids and lashes normal. Conjunctiva and sclera are non-icteric and not injected. Cornea within normal limits. Periorbital areas with no swelling, redness, or edema. ENT: Nares patent. No nasal discharge, no septal abnormalities noted. Tympanic membranes are normal and external auditory canals are clear. Oropharynx with no redness, swelling, or masses, exudates, or evidence of obstruction, uvula midline. Mucous membranes moist. Neck: Trachea midline, no thyromegaly or masses palpated, and no cervical lymphadenopathy. Supple, full range of motion without nuchal rigidity, or vertebral point tenderness. No Meningismus. Chest/axilla: Normal chest wall appearance and motion. Nontender with no deformity. No lesions are appreciated. Cardiovascular: Regular rate and rhythm with a normal S1 and S2. No gallops, murmurs, or rubs. Normal PMI, no JVD. No pulse deficits. Abdomen/GI: Soft, non-tender, with normal bowel sounds. No distension or tympany. No guarding or rebound. No evidence of tenderness throughout. Back: No spinal tenderness. No costovertebral tenderness. Full range of motion. Skin: Warm, dry with normal turgor. Normal color with no rashes, no lesions, and no evidence of cellulitis. MS/ Extremity: Pulses equal, no cyanosis. Neurovascular intact. Full, normal range of motion. Psych: Awake, alert, with orientation to person, place and time. Behavior, mood, and affect are within normal limits. 09:53 Respiratory: the patient does not display signs of respiratory distress, Respirations: normal, Breath sounds: decreased breath sounds, that are moderate, are heard in the left posterior upper lobe and left posterior lower lobe, 10:02 ECG was reviewed by the Attending Physician. [facility] Vital Signs: 08:11 BP 149 / 98; Pulse 93; Resp 18; Temp 98.1; Pulse Ox 99% on R/A; Weight 82.55 kg; Height iw 5 ft. 10 in. ; Pain 0/10; 10:01 BP 140 / 92; Pulse 88; Resp 17; Pulse Ox 99% on R/A; rs5 08:11 Body Mass Index 26.11 (82.55 kg, 177.8 cm) iw 08:11 Pain Scale: Adult iw Alex Coma Score: 09:56 Eye Response: spontaneous(4). Motor Response: obeys commands(6). Verbal Response: marcella oriented(5). Total: 15. MDM: 07:53 Patient medically screened. marcella 09:56 Differential diagnosis: cerebral vascular accident, hypertensive headache, migraine, marcella neoplasm, subdural hematoma, tension headache, trigeminal neuralgia, vasomotor headache. Data reviewed: vital signs, nurses notes, lab test result(s), EKG, radiologic studies, CT scan, MRI, plain films. Consideration of Admission/Observation Escalation of care including admission/observation considered. I considered the following discharge prescriptions or medication management in the emergency department Medications were administered in the Emergency Department. See MAR. Test considered but Not performed: Ultrasound no carotid usg. 01/04 08:04 Order name: Basic Metabolic Panel; Complete Time: 09:49 [facility] 01/04 08:04 Order name: CBC with Diff; Complete Time: 09:49 [facility] 01/04 08:04 Order name: LFT's; Complete Time: 09:49 [facility] 01/04 08:04 Order name: Magnesium; Complete Time: 09:49 [facility] 01/04 08:04 Order name: NT PRO-BNP; Complete Time: 09:49 [facility] 01/04 08:04 Order name: PT-INR; Complete Time: 09:49 marcella 01/04 08:04 Order name: Troponin HS; Complete Time: 09:49 marcella 01/04 08:04 Order name: Lipase; Complete Time: 09:49 [facility] 01/04 08:04 Order name: Urinalysis w/ reflexes; Complete Time: 10:03 [facility] 01/04 08:04 Order name: XRAY Chest (1 view); Complete Time: 09:49 [facility] 01/04 08:04 Order name: CT Head Brain wo Cont; Complete Time: 09:49 marcella 01/04 08:04 Order name: CT Head Angio; Complete Time: 09:49 marcella 01/04 08:04 Order name: CT Neck Angio; Complete Time: 09:49 marcella 01/04 08:39 Order name: CT Chest Wo Con; Complete Time: 09:49 marcella 01/04 09:21 Order name: Brain Wo Cont; Complete Time: 09:49 EDMS 01/04 08:04 Order name: EKG; Complete Time: 08:06 marcella 01/04 08:04 Order name: Cardiac monitoring; Complete Time: 08:25 marcella 01/04 08:04 Order name: EKG - Nurse/Tech; Complete Time: 08: marcella 01/04 08:04 Order name: IV Saline Lock; Complete Time: 08:26 marcella 01/04 08:04 Order name: Labs collected and sent; Complete Time: 08:26 marcella 01/04 08:04 Order name: O2 Per Protocol; Complete Time: 08: marcella 01/04 08:04 Order name: O2 Sat Monitoring; Complete Time: 08:26 [facility] EC:02 Rate is 84 beats/min. Rhythm is regular. QRS [address] is Normal. HI interval is normal. QRS marcella interval is normal. QT interval is normal. No Q waves. T waves are Normal. No ST changes noted. Clinical impression: NSR w/ Non-specific ST/T Changes and No evidence of ischemia. Interpreted by me. Reviewed by me. Administered Medications: 08:20 Drug: NS 0.9% IV 1000 ml IV at 1 bolus Per protocol; 1000 mL bolus Route: IV; Rate: 1 rs5 bolus; Site: right antecubital; 08:40 Follow up: Response: No adverse reaction rs5 10:00 Drug: Aspirin PO Chewable Tablet 81 mg PO once Route: PO; rs5 Disposition Summary: 01/04/24 10:01 Discharge Ordered Notes: Location: Home marcella Problem: new marcella Symptoms: have improved marcella Condition: Stable marcella Diagnosis - Paresthesia of skin marcella - Malignant pleural effusion - large left , loculated marcella Followup: marcella - With: Parag De León MD - When: 2 - 3 days - Reason: Recheck today's complaints, Continuance of care, Re-evaluation by your physician Discharge Instructions: - Discharge Summary Sheet marcella - Paresthesia marcella - Pleural Effusion marcella - Aspirin and Your Heart marcella - Paresthesia, [id number] marcella Forms: - Medication Reconciliation Form marcella - Thank You Letter marcella - Antibiotic Education marcella - Prescription Opioid Use marcella - Patient Portal Instructions marcella - Leadership Thank You Letter marcella Signatures: Dispatcher [employer] EDJohn Garcia MD MD cha Williams, Irene, RN RN iw Fredis Almodovar RN RN ll1 Jose Carmona RN RN rs5 Corrections: (The following items were deleted from the chart) 09:21 08:06 MR STROKE PROTOCOL+MRI.RAD.BRZ ordered. EDME EDME
[2024-01-04 10:35] VITALS: BP 149/98; TEMP 98.1; O2SAT 99
--- NOTE | 2024-01-05 15:03 | EKG ---
Test Date: 2024-01-04 Test Time: 08:27:18 Railcar Mechanic: NEL MEASUREMENT RESULTS: Intervals: Rate: 84 MN: 208 QRSD: 92 QT: 392 QTc: 463 Theodore: P: 79 MN: 208 QRS: 10 T: 5 INTERPRETIVE STATEMENTS: Normal sinus rhythm Normal ECG Compared to ECG 10/23/2023 03:52:03 Atrial fibrillation no longer present Electronically Signed On 01-05-24 15:00:54 SENIOR MANAGER MM[facility]E by Junaid Pierre
== END ==
LOC: ER 07:47
DX: C34.90 Malignant neoplasm of unspecified part of unspecified bronchus or lung (principal); J91.0 Malignant pleural effusion; I10 Essential (primary) hypertension; Z86.73 Personal history of transient ischemic attack (TIA), and cerebral infarction without residual deficits
CPT/HCPCS: 93005; 85025; 80048; 36415; 83735; 85610; 80076; 81003; 84484; 83690; 83880; 70450; 71250; 70496; 70498; 71045; 70551; 99284; Q9967; J7030

== ENCOUNTER 2024-03-07 10:14 | Observation (INO) | payer OTHER, MEDICARE ==
--- NOTE | 2024-03-07 11:06 | RAD REPORT ---
EXAM DESCRIPTION: CT - Thorax Wo Con - 03/07/2024 10:37 am CLINICAL HISTORY: sob COMPARISON: December 2023 TECHNIQUE: Computed axial tomography of the chest was obtained. Contrast was not requested. All CT scans are performed using dose optimization technique as appropriate and may include automated exposure control or mA/KV adjustment according to patient size. FINDINGS: The evaluation of mediastinum, hawa and vessels is limited secondary to lack of IV contras t administration. Large loculated left pleural effusion without significant change. The tip of a pleural catheter lies within the very superior aspect of left pleural space. Medial pleura is thickened and nodular. Left a telectasis There has been development patchy right lung opacities. Mild mediastinal hilar lymph nodes probably reactive. . IMPRESSION: Large loculated left pleural effusion without significant change from December 2023. Med ial pleura is thickened and nodular which could be secondary to inflammation or neoplasm Development of patchy right lung opacities probably
[2024-03-07 11:10] LABS: PT Prothrombin Time 12.8 SECONDS (9.5-12.5); Protime INR 1.17
[2024-03-07 11:14] LABS: Absolute Basophils 0.1 K/uL (0-0.5); Absolute Eosinophils 0.1 K/uL (0-0.5); Absolute Lymphocytes (CBC) 0.9 K/uL (0.7-4.9); Absolute Monocytes 0.8 K/uL (0.1-1.3); Absolute Neutrophil 5.3 K/uL (1.8-8.0); Basophils % 0.9 % (0-1.3); Hematocrit 37.7 % (39.6-49.0); Lymphocytes % 11.9 % (15.3-44.8); MCH 23.8 pg (27.0-35.0); MCV 74.5 fL (80-100); MPV 5.8 fL (7.6-11.3); Neutrophils % 74.2 % (41.7-73.7); Nucleated Red Blood Cells % 0.1 % (0-0); Platelets 589 thou/uL (152-406); RBC Red Blood Cell Count 5.06 M/uL (4.33-5.43); Red Cell Distribution Width 18.5 % (12.1-15.2)
[2024-03-07 11:40] LABS: Albumin 2.4 g/dL (3.4-5.0); Albumin/Globulin Ratio 0.5 (1.1-1.8); Bilirubin Direct 0.1 mg/dL (0-0.2); Bilirubin Indirect, Calculated 0.2 mg/dL (0.2-0.8); Bilirubin Total 0.3 mg/dL (0.2-1.0); Globulin 4.4 g/dL (2.3-3.5); Magnesium 2.1 mg/dL (1.6-2.4); Protein, Total 6.8 g/dL (6.4-8.2); Troponin High Sensitivity 14.1 pg/mL (<58.9)
--- NOTE | 2024-03-07 12:16 | ER ---
Nurse's Notes [facility] Name: Fidel Madrid Age: 83 yrs Sex: Male : 1940 Arrival Date: 03/07/2024 Time: 10:14 Bed 8 Private MD: Diagnosis: Pneumonia, peripheral edema, left pleural effusion Presentation: 03/07 10:31 Chief complaint: Patient states: "Dr. Pierre sent me here because I've had swollen legs mb9 and SOB for the past week. Dr. Maravilla prescribed me Spironolactone 25 mg and I took my first dose today.". Coronavirus screen: Vaccine status: Patient reports receiving the 2nd dose of the covid vaccine. Ebola Screen: No symptoms or risks identified at this time. Initial Sepsis Screen: Does the patient meet any 2 criteria? No. Patient's initial sepsis screen is negative. Does the patient have a suspected source of infection? No. Patient's initial sepsis screen is negative. Risk Assessment: Do you want to hurt yourself or someone else? Patient reports no desire to harm self or others. Onset of symptoms was March 07, 2024. 10:31 Method Of Arrival: Wheelchair mb9 10:31 Acuity: TERESA 3 mb9 Triage Assessment: 10:34 General: Appears in no apparent distress. Behavior is calm, cooperative, appropriate mb9 for age. Pain: Denies pain. EENT: No signs and/or symptoms were reported regarding the EENT system. Cardiovascular: Patient's skin is warm and dry. Respiratory: Airway is patent Respiratory effort is even, unlabored, Respiratory pattern is regular, symmetrical. Historical: - Allergies: 10:33 No Known Allergies; mb9 - PMHx: 10:33 Cerebrovascular accident; Hypercholesterolemia; Hypertensive disorder; Lung cancer mb9 (Hypertensive disorder); - PSHx: 10:33 hernia repair; right hand; THORACENTESIS; mb9 - Immunization history:: Adult Immunizations up to date. - Infectious Disease History:: Denies. - Social history:: Smoking status: Patient denies any tobacco usage or history of. Screenin:45 [facility] ED Fall Risk Assessment (Adult) History of falling in the last 3 months, ko1 including since admission No falls in past 3 months (0 pts) Confusion or Disorientation No (0 pts) Intoxicated or Sedated No (0 pts) Impaired Gait No (0 pts) Mobility Assist Device Used No (0 pt) Altered Elimination No (0 pt) Score/Fall Risk Level 0 - 2 = Low Risk Oriented to surroundings, Maintained a safe environment, Educated pt \\T\\ family on fall prevention, incl call for assistance when getting out of bed, Assessed \\T\\ reinforced patient's understanding of fall precautions, Provided non-skid footwear, Hourly rounding (assess needs \\T\\ fall precautionary measures) done, Used ambulatory aids as needed (educated on \\T\\ assisted with), Used gait belt as appropriate. Abuse screen: Denies threats or abuse. Denies injuries from another. Nutritional screening: No deficits noted. Tuberculosis screening: No symptoms or risk factors identified. Assessment: 10:45 General: Appears in no apparent distress. Behavior is calm, cooperative, appropriate ko1 for age. Pain: Denies pain. Neuro: No deficits noted. Cardiovascular: Reports shortness of breath, bilateral lower ext edema. Respiratory: Reports shortness of breath on exertion drain to left lung. GI: Reports feels full and hailey a knot in mid abdomen. : No deficits noted. EENT: No deficits noted. Derm: No deficits noted. Musculoskeletal: No deficits noted. Vital Signs: 10:31 BP 146 / 91; Pulse 74; Resp 16; Temp 98(O); Pulse Ox 94% on R/A; Weight 76.66 kg; mb9 Height 5 ft. 10 in. ; Pain 0/10; 10:45 BP 133 / 76; Pulse 70; Resp 16; Pulse Ox 95% on R/A; ko1 11:58 BP 122 / 82; Pulse 70; Resp 16; Pulse Ox 95% ; ko1 10:31 Body Mass Index 24.25 (76.66 kg, 177.8 cm) mb9 10:31 Pain Scale: Adult mb9 ED Course: 10:21 Patient arrived in ED. ra3 10:22 Ervin Cr MD is Attending Physician. sp3 10:27 Tiffany Langley, ABRAHAM is Primary Nurse. ld1 10:31 Arm band placed on. mb9 10:33 Triage completed. mb9 10:38 CT Chest Wo Con In Process Unspecified. EDMS 10:45 Patient has correct armband on for positive identification. Placed in gown. Bed in low ko1 position. Call light in reach. Side rails up X2. Client placed on continuous cardiac and pulse oximetry monitoring. NIBP monitoring applied. metropolitan editor on. Door closed. Noise minimized. Lights dimmed. Warm blanket given. 10:55 Initial lab(s) drawn, by me, sent to lab. EKG done, by ED staff, reviewed by Ervin Cr MD. Inserted saline lock: 20 gauge in right antecubital area, using aseptic technique. Blood collected. 10:59 Basic Metabolic Panel Sent. ko1 10:59 CBC with Diff Sent. ko1 10:59 LFT's Sent. ko1 10:59 Magnesium Sent. ko1 10:59 NT PRO-BNP Sent. ko1 10:59 PT-INR Sent. ko1 10:59 Troponin HS Sent. ko1 12:16 Parag De León MD is Hospitalizing Provider. sp3 14:20 Diet: Patient given water. ld1 16:41 No provider procedures requiring assistance completed. Patient admitted, IV remains in ld1 place. Administered Medications: 12:29 Drug: Furosemide IVP 40 mg IVP once; give over 2 minutes Route: IVP; Site: right ko1 antecubital; 12:29 Drug: Piperacillin-Tazobactam IVPB 3.375 grams IVPB once over 60 mins; (mix in NS 100 ko1 mL) Route: IVPB; Infused Over: 60 mins; Site: right antecubital; Medication: 16:41 VIS not applicable for this client. ld1 Output: 12:35 Urine: 350ml (Voided); Total: 350ml. ko1 Outcome: 12:16 Decision to Hospitalize by Provider. sp3 16:41 Admitted to Med/surg accompanied by tech, via wheelchair, ld1 16:41 Condition: stable 16:41 Instructed on the need for admit, 16:41 Patient left the ED. ld1 Signatures: Dispatcher [employer] EDMS Tiffany Langley RN RN ld1 Ervin Cr MD MD sp3 Fidelina Marie RN RN ko1 Madison Lopez RN RN vincent9 Mesha Wesley
--- NOTE | 2024-03-07 12:16 | EDPHYS ---
Physician Documentation [facility] Name: Fidel Madrid Age: 83 yrs Sex: Male : 1940 Arrival Date: 03/07/2024 Time: 10:14 Bed 8 Private MD: ED Physician Ervin Cr HPI: 03/07 10:51 This 83 yrs old Male presents to ER via Wheelchair with complaints of sent by Dr Pierre sp3 feet swelling and SOB. 10:51 83-year-old male with history of lung cancer with recurrent malignant effusions with a sp3 drain on the left lung which has not been drained for several weeks as per instructions from her oncology team, CVA, hyperlipidemia, hypertension now presents to the ED with chief complaint shortness of breath, cough and pedal edema bilaterally steadily increasing over the last week. He contacted Dr. Pierre's office who referred him to the ED for further evaluation. He denies any chest pain, back pain, syncope, near syncope, fever, URI symptoms, abdominal pain, vomiting, diarrhea, bleeding, rash, or any other signs or symptoms on ROS at this time.. Historical: - Allergies: 10:33 No Known Allergies; mb9 - PMHx: 10:33 Cerebrovascular accident; Hypercholesterolemia; Hypertensive disorder; Lung cancer mb9 (Hypertensive disorder); - PSHx: 10:33 hernia repair; right hand; THORACENTESIS; mb9 - Immunization history:: Adult Immunizations up to date. - Infectious Disease History:: Denies. - Social history:: Smoking status: Patient denies any tobacco usage or history of. ROS: 10:52 Constitutional: Negative for fever, chills, and weight loss, Eyes: Negative for injury, sp3 pain, redness, and discharge, Neck: Negative for injury, pain, and swelling, Cardiovascular: Negative for chest pain, palpitations, and edema, Abdomen/GI: Negative for abdominal pain, nausea, vomiting, diarrhea, and constipation, Back: Negative for injury and pain, Skin: Negative for injury, rash, and discoloration, Neuro: Negative for headache, weakness, numbness, tingling, and seizure, Psych: Negative for depression, anxiety, suicide ideation, homicidal ideation, and hallucinations, Allergy/Immunology: Negative for hives, rash, and allergies, Endocrine: Negative for neck swelling, polydipsia, polyuria, polyphagia, and marked weight changes, 10:52 All other systems are negative, sp3 Exam: 10:53 Constitutional: This is a well developed, well nourished patient who is awake, alert, sp3 and in no acute distress. Head/Face: Normocephalic, atraumatic. Eyes: Pupils equal round and reactive to light, extra-ocular motions intact. Lids and lashes normal. Conjunctiva and sclera are non-icteric and not injected. Cornea within normal limits. Periorbital areas with no swelling, redness, or edema. ENT: Nares patent. No nasal discharge, no septal abnormalities noted. External auditory canals are clear. Oropharynx with no redness, swelling, or masses, exudates, or evidence of obstruction, uvula midline. Mucous membranes moist. Neck: Trachea midline, no thyromegaly or masses palpated, and no cervical lymphadenopathy. Supple, full range of motion without nuchal rigidity, or vertebral point tenderness. No Meningismus. Chest/axilla: Normal chest wall appearance and motion. Nontender with no deformity. No lesions are appreciated. Cardiovascular: Regular rate and rhythm with a normal S1 and S2. No gallops, murmurs, or rubs. Normal PMI, no JVD. No pulse deficits. Abdomen/GI: Soft, non-tender, with normal bowel sounds. No distension or tympany. No guarding or rebound. No evidence of tenderness throughout. Back: No spinal tenderness. No costovertebral tenderness. Full range of motion. Skin: Warm, dry with normal turgor. Normal color with no rashes, no lesions, and no evidence of cellulitis. Neuro: Awake and alert, GCS 15, oriented to person, place, time, and situation. Cranial nerves II-XII grossly intact. Motor strength 5/5 in all extremities. Sensory grossly intact. Cerebellar exam normal. Normal gait. Psych: Awake, alert, with orientation to person, place and time. Behavior, mood, and affect are within normal limits. 10:53 Respiratory: Decreased breath sounds globally. No significant respiratory distress., 10:53 Musculoskeletal/extremity: Peripheral edema 2+ pitting bilaterally up to just proximal to the knees.. 11:11 ECG was reviewed by the Attending Physician. EKG demonstrates normal sinus rhythm at 72 sp3 bpm with normal intervals, normal QRS, normal axis, nonspecific diffuse ST's ST changes without evidence of acute ischemia. Vital Signs: 10:31 BP 146 / 91; Pulse 74; Resp 16; Temp 98(O); Pulse Ox 94% on R/A; Weight 76.66 kg; mb9 Height 5 ft. 10 in. ; Pain 0/10; 10:45 BP 133 / 76; Pulse 70; Resp 16; Pulse Ox 95% on R/A; ko1 11:58 BP 122 / 82; Pulse 70; Resp 16; Pulse Ox 95% ; ko1 10:31 Body Mass Index 24.25 (76.66 kg, 177.8 cm) mb9 10:31 Pain Scale: Adult mb9 MDM: 10:25 Patient medically screened. sp3 10:53 Data reviewed: vital signs, nurses notes, lab test result(s), EKG, radiologic studies. sp3 ED course: Lung cancer patient with recurrent pleural effusions now presents with diffuse edema particularly in the lower extremities. Differential diagnosis includes congestive heart failure, electrolyte abnormality, cancer related osmotic shifts, among others. Will obtain laboratory values, CT scan of the chest, EKG and general observation. I am not highly suspicious for PE, bilateral DVT or any other embolic or clotting event. Disposition pending workup and patient course.. 12:15 ED course: Antibiotics started for pneumonia Zosyn, and Lasix given for edema.. 03/07 10:26 Order name: Basic Metabolic Panel; Complete Time: 12:09 3 03/07 10:26 Order name: CBC with Diff; Complete Time: 12:09 3 03/07 10:26 Order name: LFT's; Complete Time: 12: sp3 03/07 10:26 Order name: Magnesium; Complete Time: 12: sp3 03/07 10:26 Order name: NT PRO-BNP; Complete Time: 12:09 sp3 03/07 10:26 Order name: PT-INR; Complete Time: 12:09 sp3 03/07 10:26 Order name: Troponin HS; Complete Time: 12:09 sp3 03/07 10:26 Order name: CT Chest Wo Con 3 03/07 10:26 Order name: EKG; Complete Time: 10:27 sp3 03/07 10:26 Order name: Cardiac monitoring; Complete Time: 10:46 sp03/07 10:26 Order name: EKG - Nurse/Tech; Complete Time: 10:52 sp3 03/07 10:26 Order name: IV Saline Lock; Complete Time: 10:59 sp3 03/07 10:26 Order name: Labs collected and sent; Complete Time: 10:59 sp3 03/07 10:26 Order name: O2 Per Protocol; Complete Time: 10:29 sp3 03/07 10:26 Order name: O2 Sat Monitoring; Complete Time: 10:29 sp3 Administered Medications: 12:29 Drug: Furosemide IVP 40 mg IVP once; give over 2 minutes Route: IVP; Site: right ko1 antecubital; 12:29 Drug: Piperacillin-Tazobactam IVPB 3.375 grams IVPB once over 60 mins; (mix in NS 100 ko1 mL) Route: IVPB; Infused Over: 60 mins; Site: right antecubital; Disposition Summary: 03/07/24 12:16 Hospitalization Ordered Notes: Hospitalization Status: Inpatient Admission sp3 Provider: Parag De León sp3 Condition: Stable sp3 Problem: an acute exacerbation sp3 Symptoms: have worsened sp3 Bed/Room Type: Standard sp3 Location: Telemetry/MedSurg (Inpatient)(03/07/24 15:46) bd Room Assignment: 418(03/07/24 15:46) bd Diagnosis - Pneumonia, peripheral edema, left pleural effusion sp3 Forms: - Medication Reconciliation Form sp3 - SBAR form sp3 - Leadership Thank You Letter sp3 Signatures: Dispatcher [employer] EDMS Vicenta Wilcox bd Ervin Cr MD MD sp3 Bridgett Gold RN RN kb3 Fidelina Marie RN RN ko1 Madison Lopez, RN RN mb9 Corrections: (The following items were deleted from the chart) 10:27 10:27 BASIC METABOLIC PANEL+C.LAB.BRZ ordered. EDMS EDMS 10:27 10:27 CBC+H.LAB.BRZ ordered. EDMS EDMS 10:27 10:27 HEPATIC FUNCTION+C.LAB.BRZ ordered. EDMS EDMS 10:27 10:27 MAGNESIUM+C.LAB.BRZ ordered. EDMS EDMS 10:27 10:27 PROBNP+C.LAB.BRZ ordered. EDMS EDMS 10:27 10:27 PROTIME (+INR)+COAG.LAB.BRZ ordered. EDMS EDMS 10:27 10:27 Troponin High Sensitivity+C.LAB.BRZ ordered. EDMS EDMS 10: 10:27 Thorax Wo Con+CT.RAD.BRZ ordered. EDMS EDMS 15:40 12:16 Telemetry/MedSurg (Inpatient) sp3 kb3 15:40 12:16 sp3 kb3 15:46 15:40 [facility] ER HOLD kb3 bd 15:46 15:40 ERHOLD- kb3 bd
[2024-03-07] MEDS ORDERED: NA CHLORIDE 0.9% 100 ML ONE (12:20)
[2024-03-07] MEDS ORDERED: FUROSEMIDE 40 MG/4 ML VIAL ONE (12:20)
[2024-03-07] MEDS ORDERED: PIPERACIL/TAZO 3.375 GM VIAL IV ONE (12:21)
[2024-03-07] MEDS ORDERED: ACETAMINOPHEN 325 MG TABLET PO PRN (16:48)
[2024-03-07 17:21] VITALS: BMI 24.2
[2024-03-07] MEDS ORDERED: TRAZODONE 50 MG TABLET PO PRN (20:53)
[2024-03-07] MEDS ORDERED: BENZONATATE 100 MG CAP PO PRN (20:53)
[2024-03-07] MEDS: TRAZODONE 50 MG TABLET ONE (21:31)
[2024-03-07] MEDS: NA CHLORIDE 0.9% 100 ML ONE (21:37)
[2024-03-07] MEDS: FUROSEMIDE 20 MG/ 2ML VIAL ONE (21:38)
[2024-03-07] MEDS: FUROSEMIDE 40 MG/4 ML VIAL ONE (21:38)
[2024-03-07] MEDS: Levofloxacin500mg IV 500 MG/100 ML BAG IV SCH (21:46)
[2024-03-07] MEDS: TRAZODONE 50 MG TABLET PO SCH (21:46)
[2024-03-07] MEDS: FUROSEMIDE 100 MG in NA CHLORIDE 0.9% 90 ML IV SCH (21:46)
[2024-03-07] MEDS ORDERED: LEVOFLOXACIN 750MG/D5W 150 ML IV SCH (22:00)
[2024-03-08 03:41] LABS: Absolute Basophils 0.1 K/uL (0-0.5); Absolute Eosinophils 0.2 K/uL (0-0.5); Absolute Lymphocytes (CBC) 1.1 K/uL (0.7-4.9); Absolute Monocytes 1.2 K/uL (0.1-1.3); Absolute Neutrophil 7.2 K/uL (1.8-8.0); Basophils % 0.8 % (0-1.3); Eosinophils % 2.4 % (0-4.4); Hemoglobin 13.6 g/dL (13.6-17.9); Lymphocytes % 11.4 % (15.3-44.8); MCHC 32.3 g/dL (32.0-36.0); MCV 74.4 fL (80-100); MPV 5.9 fL (7.6-11.3); Monocytes % 11.9 % (3.3-12.3); Neutrophils % 73.5 % (41.7-73.7); Platelets 596 thou/uL (152-406); RBC Red Blood Cell Count 5.64 M/uL (4.33-5.43); Red Cell Distribution Width 18.8 % (12.1-15.2)
[2024-03-08 04:01] LABS: Albumin 2.8 g/dL (3.4-5.0); Albumin/Globulin Ratio 0.6 (1.1-1.8); Anion Gap 10.6 mEq/L (5.0-15.0); Bilirubin Direct 0.2 mg/dL (0-0.2); Bilirubin Indirect, Calculated 0.4 mg/dL (0.2-0.8); Bilirubin Total 0.6 mg/dL (0.2-1.0); Magnesium 1.9 mg/dL (1.6-2.4); Potassium 3.6 mEq/L (3.5-5.1); Protein, Total 7.8 g/dL (6.4-8.2)
[2024-03-08] MEDS: FAMOTIDINE 20 MG TAB PO SCH (08:58)
[2024-03-08] MEDS: METOPROLOL TAR 50 MG TAB PO SCH (08:58)
[2024-03-08] MEDS: AMIODARONE HCL 200 MG TAB PO SCH (08:58)
[2024-03-08] MEDS: BENZONATATE 100 MG CAP PO SCH (08:58)
[2024-03-08] MEDS: FINASTERIDE 5 MG TAB PO SCH (08:58)
[2024-03-08] MEDS: ATORVASTATIN 20 MG TAB PO SCH (08:58)
[2024-03-08] MEDS: CLOPIDOGREL 75 MG TABLET PO SCH (08:58)
[2024-03-08 09:59] VITALS: O2SAT 94
[2024-03-08 10:00] VITALS: BP 133/75; TEMP 97.4
--- NOTE | 2024-03-08 21:19 | P.SSS ---
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 HE IS ON PALLIATIVE IMMUNOTHERAPY. HIS HH NURSE ASKED HIM TO CALL [facility] ABOUT EDEMA AND HE ASKED HIM TO GO TO ER. ER DOCTOR WANTED TO ADMIT HIM CT CHEST REPORT SHOWED OTHER SIDE INFILTERATE. I TOLD HIM THAT THERE IS NO NEED TO ADMISSION THERE ARE NO SYMPTOMS OF PNEUMONIA. I CALLED DR. GUAMAN TO CLARIFY ABOUT THIS. HE DID NOT READ THE PREVIOUS SCANS UNTIL I ASKED HIM TO. NOW HE CLARIFIED THAT THE R SIDE INFILTERATE IS NOT PNEUMONIA BUT IT IS CANCER THAT IS NEW ON R SIDE. HE WILL AMEND THE REPORT. I TALKED TO HIM AND IN DETAIL. I ALSO TALKED TO DR. HARPER AND SHE AGREES THAT IF CANCER IS SPREADING THEN THE PALLIATIVE THERAPY IS NOT WORKING ALSO. SHE AGREES NOW THAT IT IS MOST LIKELY OKAY FOR HOSPICE. SHE WILL REVIEW AGAIN AND CALL ME. AGAIN HE HAS NO ACUTE SYMPTOM TO STAY IN HOSPITAL. Allergies No Known Drug Allergies Allergy (Verified 05/02/22 08:05) Unknown Home medications list reviewed: Yes Home Medications: Finasteride 5 mg PO DAILY 08/09/18 Glucosamine HCl/Chondroitin Gustafson [Glucosamine-Chondroitin Cap] 1 mg PO DAILY 08/09/18 Multivitamin [Multiple Vitamins] 1 mg PO DAILY 08/09/18 Simvastatin 40 mg PO DAILY 08/09/18 Ascorbic Acid [Vitamin C] 1,000 mg PO DAILY 04/29/22 Cyanocobalamin [Vitamin B-12] 1,000 mcg PO DAILY 04/29/22 Famotidine [Pepcid] 40 mg PO DAILY 04/29/22 Zinc 50 mg PO DAILY 04/29/22 Calcium Citrate/Vitamin D3 [Calcium Citrate-Vit D3 Tablet] 1 tab PO DAILY 08/29/23 Clopidogrel Bisulfate [Plavix] 75 mg PO DAILY 08/29/23 Amiodarone HCl [Cordarone Tab] 200 mg PO DAILY 03/07/24 Benzonatate [Tessalon Perle] 100 mg PO TID 03/07/24 D-Methorphan Hb/Prometh HCl [Promethazine-Dm Syrup] 5 ml PO DAILY 03/07/24 Metoprolol Tartrate [Lopressor] 50 mg PO BID 03/07/24 Trazodone [Desyrel] 50 mg PO BEDTIME 03/07/24 - Past Medical/Surgical History Has patient received pneumonia vaccine in the past: Yes Diabetic: No -: CVA -: HTN -: HLD -: Hernia Repair - Social History Smoking Status: Never smoker Alcohol use: No CD- Drugs: No Caffeine use: Yes Place of Residence: Home Review of Systems 10-point ROS is otherwise unremarkable General: As per HPI Physical Examination - Vital Signs Temperature: 97.4 F Blood Pressure: 133/75 Pulse: 98 Respirations: 18 Pulse Ox (%): 90 - Physical Exam General: Alert, In no apparent distress, Other (HE HAS LOST A LOT OF WEIGHT WITH CANCER.) HEENT: Atraumatic, PERRLA, Mucous membr. 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 NO AMOUNT OF DIURETIC WILL HELP. WITH LOW DOSE DIURETIC AT NIGHT HIS BP DROPPED. Qualifiers: Edema type: due to malnutrition (2) Mesothelioma Status: Chronic Plan: INCURABLE CANCER I ADVISED HOSPICE HE IS LOSING WEIGHT AND CANCER IS ADVANCING. - Disposition Disposition: ROUTINE DISCHARGE Condition: SERIOUS
== END 2024-03-08 11:38 | disposition home or self-care (01) ==
LOC: ER 10:14 → ERHOLD 14:47 → 4TH 16:33
PROVIDERS: ADMIT Internal Medicine; ATTEND Internal Medicine
DX: C45.7 Mesothelioma of other sites (principal); C78.01 Secondary malignant neoplasm of right lung; R60.9 Edema, unspecified; E40 Kwashiorkor; I95.9 Hypotension, unspecified; Z68.24 Body mass index [BMI] 24.0-24.9, adult
CPT/HCPCS: 93005; 85025 ×2; 80048 ×2; 36415; 83735 ×2; 85610; 80076 ×2; 84484; 83880; 71250; 94760 ×3; 96375; 96374; 99285; J1940 ×3; J2543; G0378